=== PATIENT | male | born 1950 | race Caucasian/White ===

== ENCOUNTER 2020-04-18 18:28 | Emergency (ER) | payer MEDICARE, SELFPAY ==
--- NOTE | 2020-04-18 18:54 | PC.NURSE ---
1830 following registration, prior to triage pt informed staff he decided to go to er for finger and nail repair. appears in no distress.
== END 2020-04-18 18:30 | disposition left against medical advice (07) ==
PROVIDERS: Emergency Provider Internal Medicine Hematology & Oncology; PCP Internal Medicine
DX: Z53.21 Procedure and treatment not carried out due to patient leaving prior to being seen by health care provider (principal)
CPT/HCPCS: 99199

== ENCOUNTER 2024-09-07 07:40 | Outpatient (CLI) | payer MEDICARE, SELFPAY ==
--- NOTE | ~2024-09-07 | CT_ITS ---
EXAMINATION: CT abdomen pelvis wo/w con DATE: 09/07/2024 08:37 INDICATION: Gross hematuria. TECHNIQUE: Computed tomography (CT) of the abdomen and pelvis was performed without and with intraven ous contrast using a total of 130 mL Omnipaque-350 intravenous contrast with a double-bolus technique for simultaneous opacification of the renal parenchyma and renal collecting system. Automated exposu re control and iterative reconstruction technique were employed. The dose-length product was 2951.31 mGy-cm. COMPARISON: None FINDINGS: The visualized portions of the lung bases demonstrate mild atelectasis and mild chronic lung disease. No pleural effusion. The heart size is normal. No pericardial effusion. There is a small sliding hia darlyn hernia. Left hepatic lobe is small. There is a 5 mm cyst in the liver. 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 The spleen, pancreas, adrenal glands, and kidneys are normal. There are 1.0 cm and 2.9 cm stones in the bladder. The ureters are well opacified and are normal. The bladder is not well disten ded. There is diffuse bladder wall thickening. The prostate is severely enlarged. There are bilateral inguinal hernias containing fat. There are no dilated loops of bowel. The appendix is normal. There are no pathologically enlarged lymph nodes. There is no free intraperitoneal fluid. There are scatter ed benign bone islands. There is mild thoracic spondylosis and severe lower lumbar spondylosis. IMPRESSION: 1. Bladder stones. 2. Diffuse bladder wall thickening, likely secondary to chronic outlet obstruction from the severely enlarged prostate. Reviewed, dictated and finalized at location B. IMPRESSION: 1. Bladder stones. 2. Diffuse bladder wall thickening, likely secondary to chronic outlet obstruct ion from the severely enlarged prostate.
[2024-09-07 08:18] LABS: Estimated Glomerular Filt Rate > 60
== END 2024-09-07 07:41 | disposition home or self-care (01) ==
PROVIDERS: PCP Internal Medicine; Visit Provider Nurse Practitioner Family
DX: R31.0 Gross hematuria (principal); N21.0 Calculus in bladder
CPT/HCPCS: 74178; Q9967

== ENCOUNTER 2024-11-24 01:22 | Day surgery (SDC) | payer MEDICARE, SELFPAY ==
[2024-11-15 15:41] VITALS: BMI 31.8
--- NOTE | 2024-11-15 15:58 | PC.NURSE ---
Report to the Outpatient Waiting Room, entrance under the green pavilion located off [facility], at time __6:30AM on date ___11/24/24____. Planned Procedure Time: ___8:30AM .? Time changes happen often and if your time is changed the preop area will call you the afternoon before. - You and your visitor will be asked to self-screen and do not enter if you have any COVID symptoms. Please call surgeon if you need to reschedule. - A mask is optional within the hospital at this time. Patients may have clear liquids (water, carbonated beverages, clear teas, apple juice) until 3 hours prior to surgery (5:30AM) with a maximum of 20 ounces. - No food from midnight until time of surgery and no smoking. This includes no chewing gum, candy or mints. - Infants may have breast milk until 4 hours before surgery, formula 6 hours prior to surgery. - Children will be allowed to drink immediately following surgery.? If applicable, please bring a bottle or sippy cup to assist with drinking. Juice, water, soda, and popsicles are readily available.? For infants on formula, please bring formula the day of surgery.? Pacifiers are allowed. Take only the following medications with a SIP of water on the morning of surgery: NONE (PT WILL BE FINISHED TAKING LEVOFLOXACIN) DO NOT STOP ANY OF YOUR OTHER PRESCRIPTION MEDICATIONS PRIOR TO SURGERY EXCEPT THE FOLLOWING Medications to discontinue per physician HOLD ALL VITAMINS/SUPPLEMENTS 7 DAYS PRE-OP PER DR COBIAN Date to take last dose 11/16/24 Please no make-up, nail hungarian, hairspray, perfume, deodorant, or body powder the day of surgery.? No jewelry (including any body piercings) or valuables the day of surgery, leave them at home.? Please take a shower or bath the night before, or the morning of, surgery with an antibacterial soap.? Wear comfortable, loose fitting clothing.? Children are encouraged to wear pajamas. - Jewelry must be removed prior to entering the operating room.? Rings and piercings that are not removed may be cut off. - The hospital will not accept responsibility for valuables.? - Please leave all valuables, including medications, at home the day of surgery. If you are going home after surgery, a licensed delivery motorcycle driver must drive you home.? - NO public transportation without another adult if you receive anesthesia. - We recommend that an adult stay with you for 24 hours following discharge. - We also recommend that you do not drive, make important decision, drink alcoholic beverages, or take any drugs that were not prescribed by your health care provider for at least 24 hours after your discharge time. For Pediatric surgeries, we recommend two adults accompany the child home. Follow any additional instructions given to you from your surgeon. Telephone instructions given to ____PATIENT and asked if any additional questions and then verbalized understanding. Patient advised to call surgeon office or pre surgery nurse liaison [phone] if any additional questions.
--- NOTE | 2024-11-18 16:56 | PM.HPGS ---
History of Present Illness History of Present Illness Consent: Risks, benefits, and alternatives have been discussed and questions answered. Patient agrees to proceed with procedure. Chief complaint: bladder stones Narrative: Brant Guallpa is a 74 year old male who was recently seen by our nurse practitioner for recurrent urinary tract infection and micro hematuria. Upper tract imaging was quite notable for a massively enlarged prostate ( measured at 535 g) and a very large bladder stone. He has been started on combination therapy for marked BPH and we have had discussion about prostate artery embolization. 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 Spiritual care concerns: No Meds Home Medications and Allergies Home Medications ?Medication ?Instructions ?Recorded ?Confirmed ?Type finasteride 5 mg tablet 5 mg PO DAILY 11/15/24 11/15/24 History ibuprofen 200 mg capsule 400 mg PO TID PRN pain 11/15/24 11/15/24 History levofloxacin 500 mg tablet 500 mg PO Q24H 11/15/24 11/15/24 History multivitamin (Daily Multi-Vitamin 1 tablet PO DAILY 11/15/24 11/15/24 History tablet) omeprazole 20 mg capsule,delayed 20 mg PO DAILY 11/15/24 11/15/24 History release tamsulosin 0.4 mg capsule 0.4 mg PO Q24H 11/15/24 11/15/24 History Allergies Allergy/AdvReac Type Severity Reaction Status Date / Time Sulfa (Sulfonamide Allergy Unknown UNKNOWN Verified 11/15/24 15:32 Antibiotics) Exam Const: General: no acute distress Resp: Effort & Inspection: normal respiratory effort GI: Inspection: non-distended GI Palp: No abdominal tenderness and No Guarding due to palpation present (GI) Auscultation: normal bowel sounds Assessment and Plan Assessment and plan (1) BPH loc w urin obs/LUTS: Code(s): N40.1 - Benign prostatic hyperplasia with lower urinary tract symptoms Status: Acute (2) Bladder stone: Code(s): N21.0 - Calculus in bladder Status: Acute Assessment and Plan: Cystoscopy, laser lithotripsy bladder calculus
[2024-11-24] VITALS (22 sets, daily range): BP systolic 99–160; BP diastolic 64–98; PULSE 73–113; RESP 12–20; TEMP 36.2–38.2; O2SAT 94–100
--- NOTE | 2024-11-24 06:24 | WPDHPUPDATE1 ---
History and Physical Update Update Date/Time: 11/24/24 06:24 History and Physical has been reviewed, including an updated exam of the patient. There are NO changes in the patient's condition. Risks, benefits, and alternatives have been discussed and questions answered. Patient agrees to proceed with procedure.
[2024-11-24] MEDS: LACTATED RINGERS 1,000 ML 30 ML IV CONT ×2 (07:00→10:10)
--- NOTE | 2024-11-24 08:00 | P.PNAN_ITS ---
Anes - Initial Pre Proc Eval Procedure: Operation Date: 11/24/24 08:30 Proposed Procedures p Cystoscopy, Laser Lithotripsy, Bladder Stones - Mandeep Jacob MD Date/Time: 11/24/24 08:00 Surgeon: Mandeep Jacob MD Pre Op Diagnosis: bladder stones Patient Data Age: 74 Gender: M Height: 1.82 m Weight: 104.7 kg Last Vital Signs Temp 97.1 F L 11/24/24 07:00 Pulse 91 11/24/24 07:00 Resp 14 11/24/24 07:00 BP 117/81 11/24/24 07:00 Pulse Ox 97 11/24/24 07:00 O2 Del Method Room Air 11/24/24 07:00 Allergies Allergy/AdvReac Type Severity Reaction Status Date / Time Sulfa (Sulfonamide Allergy Unknown UNKNOWN Verified 11/24/24 07:25 Antibiotics) Home Medications ?Medication ?Instructions ?Recorded ?Confirmed ?Type finasteride 5 mg tablet 5 mg PO DAILY 11/15/24 11/15/24 History ibuprofen 200 mg capsule 400 mg PO TID PRN pain 11/15/24 11/15/24 History levofloxacin 500 mg tablet 500 mg PO Q24H 11/15/24 11/15/24 History multivitamin (Daily Multi-Vitamin 1 tablet PO DAILY 11/15/24 11/15/24 History tablet) omeprazole 20 mg capsule,delayed 20 mg PO DAILY 11/15/24 11/15/24 History release tamsulosin 0.4 mg capsule 0.4 mg PO Q24H 11/15/24 11/15/24 History Patient hx anesthesia problems: none Family hx anesthesia problems: none Results Review: All pre-operative results and documents have been reviewed as part of the pre- operative evaluation. 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 Obesity BMI 31. Informed Consent: The patient's anesthetic plan and its attendant risks and benefits were discussed with the patient/family/POA. Questions were solicited and answers provided to the satisfaction of the patient/family/POA.
[2024-11-24] MEDS: ceFAZolin 2 GM/D5W 50 ML 2 GM/50 ML BAG IVPB (08:03)
[2024-11-24] MEDS: LIDOCAINE 2% GEL UROJET 10 ML PKG MUCOUS MEM (08:08)
--- NOTE | 2024-11-24 10:06 | W.PM.PROC2 ---
Procedure Note - Detailed Date of Procedure 11/24/24 Pre-op Diagnosis Bladder stone, BPH Post-op Diagnosis Same Procedure Performed Cystoscopy, laser lithotripsy of a very large bladder stone, cautery prostate Surgeon Mandeep Jacob MD Anesthesia General Description of Procedure patient brought the operative suite was prepped draped in routine sterile fashion while in dorsal lithotomy position after the uneventful induction of a general LMA anesthetic. This is a challenging case because he has massive prostatic enlargement ( 535 g) and a very large 6-7 cm bladder stone. Persistent, however, I was able to fracture the stone pieces small enough to either irrigated or removed manually with a 24 F resectoscope sheath and loop. This was done using a 1000 micron Matias laser fiber. At the termination the bladder mucosa is was irritated and hyperemic. There was some oozing at the bladder neck which I cauterized with a rollerball. All fragments had been removed either by irrigation or with the resectoscope loop. A 22 F hematuria catheter was placed to continuous irrigation at the termination. Urine was minimally blood-tinged. Drains Yes Packing No Pathology Yes Complications No immediate complications Condition Stable
[2024-11-24] MEDS: fentaNYL CITRATE INJ (*CRX) 100 MCG/2 ML VIAL 25 MCG IV PUSH ×2 (12:11→12:14)
--- NOTE | 2024-11-24 12:27 | SUR.PHASEI ---
Dr. Jacob at bedside irrigating velazquez.
--- NOTE | 2024-11-24 13:45 | ADMGEN ---
This patient, Brant Guallpa, was admitted to 3 [facility] Room 313-01. Patient/family oriented to hospital policies and general routines including ID bracelet, bed and alarms, visiting hours, pain management, procedures, bathroom and other care routines, personal items, smoking policy, room service/diet, and visiting hours. Information on how to activate the Rapid Response Team has been discussed. Patient/Family are encouraged to report perceived risks to care and to ask questions if they do not understand what they are told or what they should do.
[2024-11-24] MEDS: DOCUSATE SODIUM 100 MG CAPSULE PO (16:22)
[2024-11-24] MEDS: ceFAZolin 1 GM/NS 50 ML 1 GM/50 ML BAG IVPB ×2 (16:23→23:05)
[2024-11-24] MEDS: DEXTROSE 5%/LACTATED RINGERS 1,000 ML 125 ML IV CONT (16:24)
[2024-11-24] MEDS: HYDROcodone/acetaminophen (*CRX) 5-325 MG TABLET 1 TAB PO ×2 (18:28→22:49)
[2024-11-24] MEDS: HYOSCYAMINE SULFATE 0.125 MG TABLET SUBLINGUAL (20:52)
[2024-11-25] MEDS: DEXTROSE 5%/LACTATED RINGERS 1,000 ML 125 ML IV CONT ×2 (00:39→10:04)
[2024-11-25] MEDS: MORPHINE SULFATE (*CRX) 2 MG/ML INJ IV PUSH (02:30)
[2024-11-25 03:28] VITALS: BP 139/80; PULSE 100; RESP 20; TEMP 37.4; O2SAT 96
--- NOTE | 2024-11-25 06:35 | P.PNUR_ITS ---
Progress Note: A&P Assessment and Plan (1) Bladder stone: Code(s): N21.0 - Calculus in bladder Status: Acute (2) BPH loc w urin obs/LUTS: Code(s): N40.1 - Benign prostatic hyperplasia with lower urinary tract symptoms Status: Acute Assessment and Plan: * Challenging problem in this patient with a 500 g prostate and 4 cm bladder stone. POD #1 s/p laser extraction bladder stone * Was doing well postoperatively until the hematuria recurred following a bowel movement yesterday. * Urine is now clearing his bladder irrigates freely. * I will remove the catheter for a voiding trial today Subjective Subjective Date/Time Seen: 11/25/24 06:35 Interval history: Hematuria with clots after BM last night. Urine now clear on CBI Review of Systems Review of Systems: All systems reviewed & are unremarkable except as noted in HPI and below Exam Const: General: no acute distress Resp: Effort & Inspection: normal respiratory effort GI: Inspection: non-distended GI Palp: No abdominal tenderness and No Guarding due to palpation present (GI) Auscultation: normal bowel sounds Urinary Catheter: Urinary Catheter: patent and draining and urine clear Objective Data Vital Signs Vital Signs: Vital Signs - 24 hr 11/24/24 07:00 11/24/24 10:10 11/24/24 10:25 Temperature 97.1 F L 98.1 F Pulse Rate 91 73 83 Respiratory Rate 14 14 15 Blood Pressure 117/81 122/80 150/97 H Pulse Oximetry 97 95 97 Oxygen Delivery Room Air Simple Face Mask Simple Face Mask Oxygen Flow Rate 8 8 11/24/24 10:40 11/24/24 10:55 11/24/24 11:10 Temperature Pulse Rate 80 78 77 Respiratory Rate 12 15 16 Blood Pressure 149/98 H 149/96 H 145/95 H Pulse Oximetry 94 96 94 Oxygen Delivery Room Air Room Air Room Air Oxygen Flow Rate 11/24/24 11:25 11/24/24 11:40 11/24/24 11:55 Temperature Pulse Rate 78 76 76 Respiratory Rate 16 16 14 Blood Pressure 145/86 H 135/95 H 159/96 H Pulse Oximetry 94 96 97 Oxygen Delivery Room Air Room Air Room Air Oxygen Flow Rate 11/24/24 12:10 11/24/24 12:25 11/24/24 12:40 Temperature Pulse Rate 76 79 83 Respiratory Rate 14 16 15 Blood Pressure 153/86 H 139/88 149/82 H Pulse Oximetry 97 95 96 Oxygen Delivery Room Air Room Air Room Air Oxygen Flow Rate 11/24/24 12:55 11/24/24 13:10 11/24/24 13:25 Temperature Pulse Rate 85 77 84 Respiratory Rate 20 14 18 Blood Pressure 139/90 147/88 H 142/90 H Pulse Oximetry 96 95 99 Oxygen Delivery Room Air Room Air Room Air Oxygen Flow Rate 11/24/24 13:40 11/24/24 13:43 11/24/24 13:58 Temperature 97.6 F 98.2 F Pulse Rate 82 87 97 Respiratory Rate 16 16 16 Blood Pressure 152/80 H 146/79 H 160/98 H Pulse Oximetry 98 98 98 Oxygen Delivery Room Air Oxygen Flow Rate 11/24/24 14:28 11/24/24 15:28 11/24/24 19:28 Temperature 98.0 F 97.9 F 99.3 F Pulse Rate 103 H 112 H 106 H Respiratory Rate 18 18 20 Blood Pressure 152/91 H 99/89 L 119/64 Pulse Oximetry 100 97 94 Oxygen Delivery Oxygen Flow Rate 11/24/24 20:34 11/24/24 23:28 11/25/24 03:28 Temperature 100.8 F H 99.4 F Pulse Rate 113 H 100 Respiratory Rate 20 20 Blood Pressure 136/78 139/80 Pulse Oximetry 94 96 Oxygen Delivery Room Air Oxygen Flow Rate Intake/Output Intake/Output: Intake & Output 11/22/24 11/23/24 11/24/24 11/25/24 23:59 23:59 23:59 23:59 Intake Total 6350 1550 Output Total 5475 Balance 875 1550 Meds/Results Medications: Active Medications Generic Name Dose Route Start Last Admin Trade Name Freq PRN Reason Stop Dose Admin Hydrocodone Bitart/Acetaminophen 1 tab 11/24/24 13:43 11/24/24 22:49 Hydrocodone/Acetaminophen (*Crx) 5-325 Mg Tablet PO 1 tab Q4H PRN Administration Pain Rated 1-6 Cephalexin HCl 500 mg 11/25/24 09:00 Cephalexin 500 Mg Capsule PO QID CHUCK Docusate Sodium 100 mg 11/24/24 17:00 11/24/24 16:22 Docusate Sodium 100 Mg Capsule PO 100 mg BID CHUCK Administration Hyoscyamine 0.125 mg 01/16/25 13:43 11/24/24 20:52 Hyoscyamine Sulfate 0.125 Mg Tablet SUBLINGUAL 0.125 mg Q6H PRN Administration Bladder Spasm Dextrose/Lactated Ringer's 1,000 mls @ 125 mls/hr 11/24/24 13:43 11/25/24 00: 39 Dextrose 5%/Lactated Ringers IV CONT 125 mls/hr .Q8H CHUCK Administration Morphine Sulfate 2 mg 11/24/24 13:43 11/25/24 02:30 Morphine Sulfate (*Crx) 2 Mg/Ml Inj IV PUSH 2 mg Q2H PRN Administration Pain Rated 7-10 Naloxone HCl 0.1 mg 11/24/24 13:43 Naloxone Hcl 0.4 Mg/Ml Vial IV PUSH Q2M PRN Opiate Reversal Ondansetron HCl 4 mg 11/23/24 15:54 Ondansetron Inj 4 Mg/2 Ml Vial IV PUSH ONCE PRN Nausea Ondansetron HCl 4 mg 11/24/24 13:43 Ondansetron Inj 4 Mg/2 Ml Vial IV PUSH Q12H PRN Nausea And Vomiting
[2024-11-25 06:47] LABS: Hematocrit 46.1 % (42.0-52.0); Hemoglobin 15.7 g/dL (14.0-18.0)
[2024-11-25 07:02] LABS: Anion Gap 8 mmol/L (4-12); Blood Urea Nitrogen 11 mg/dL (9-20); Calcium 8.6 mg/dL (8.4-10.2); Carbon Dioxide 28 mmol/L (22-30); Chloride 102 mmol/L (98-107); Estimated CRCL calculation 82 ml/min; Estimated Glomerular Filt Rate > 60; Glucose 134 mg/dL (65-110); Potassium 4.1 mmol/L (3.4-5.0); Sodium 138 mmol/L (137-145)
[2024-11-25 07:28] VITALS: BP 137/83; PULSE 105; RESP 18; TEMP 37; O2SAT 96
--- NOTE | 2024-11-25 08:00 | PC.NURSE ---
Bladder scanner reported 226cc of urine. Dr. Jacob at bedside.
[2024-11-25] MEDS: HYDROcodone/acetaminophen (*CRX) 5-325 MG TABLET 1 TAB PO (08:36)
[2024-11-25] MEDS: HYOSCYAMINE SULFATE 0.125 MG TABLET SUBLINGUAL (08:37)
[2024-11-25] MEDS: CEPHALEXIN 500 MG CAPSULE PO ×2 (08:37→12:35)
[2024-11-25] MEDS: DOCUSATE SODIUM 100 MG CAPSULE PO (08:37)
--- NOTE | 2024-11-25 10:12 | PC.NURSE ---
Urology at bedside. Bladder scanned and reported 449cc of urine.
[2024-11-25 11:28] VITALS: BP 112/82; PULSE 95; RESP 16; TEMP 36.9; O2SAT 99
--- NOTE | 2024-11-25 12:10 | PC.NURSE ---
Urinary catheter reinserted at bedside per Dr. Jacob.
[2024-11-25] MEDS: MAGNESIUM CITRATE 300 ML BTL 150 ML PO (12:35)
--- NOTE | 2024-11-25 15:43 | PM.DS ---
DS: Admitting Diagnosis Discharge Date 11/25/2024 Admitting Diagnosis 1. BPH 2. Bladder stone DS: Summary Hospital Course Hospital Course: Patient with massive BPH (500 g prostate) in a stone. He was admitted for laser lithotripsy with bladder stone extraction. We were able to complete the procedure but he had some moderate hematuria postoperatively. All 3 way catheter was left in place overnight PICC clear urine. Decision was made discharge him with an indwelling catheter and follow-up next week for another voiding. Time Spent with Patient Time attestation: Total time spent providing and/or coordinating discharge services: Exam Const: General: no acute distress Resp: Effort & Inspection: normal respiratory effort GI: Inspection: non-distended GI Palp: No abdominal tenderness and No Guarding due to palpation present (GI) Auscultation: normal bowel sounds DS: Data Data Completed and Pending Completed studies during hospitalization: Pending at discharge 11/24/24 09:29 Surgical [PTH] Routine Labs on day of discharge: Labs from last 24 hours 11/25/24 06:04 Hgb 15.7 Hct 46.1 Sodium 138 Potassium 4.1 Chloride 102 Carbon Dioxide 28 Anion Gap 8 BUN 11 Creatinine 0.84 Estim Creat Clear Calc 82 Estimated GFR > 60 Glucose 134 H Calcium 8.6 Discharge Plan Discharge Patient Disposition: Home, Self-Care Discharge Instructions: 1) Activity: no driving or important decisions x24 hours. 2) Diet: resume your normal, pre-admission diet. 3. [place] catheter -> leg bag / large bag at night. 3) Follow-up: Thursday11/28/24 @[phone] for catheter removal ([phone]). Patient Language: Greenlandic Stand Alone Forms: General Discharge Instructions Discharge Orders: Discharge Order (Routine); Ordered 11/25/24 Ordered By: Mandeep Jacob Discharge Medications: New hydrocodone-acetaminophen 5-325 mg tablet 1 - 2 tablet PO Q6H PRN (Reason: pain) Qty: 20 0RF cephalexin 500 mg capsule 500 mg PO Q8H Qty: 9 0RF Continued finasteride 5 mg tablet 5 mg PO DAILY tamsulosin 0.4 mg capsule 0.4 mg PO Q24H levofloxacin 500 mg tablet 500 mg PO Q24H omeprazole 20 mg capsule,delayed release(DR/EC) 20 mg PO DAILY multivitamin [Daily Multi-Vitamin] Tablet 1 tablet PO DAILY ibuprofen 200 mg capsule 400 mg PO TID PRN (Reason: pain)
--- OUTSIDE RECORDS SUMMARY | 2024-12-01 00:38 | XMS_ITS | Encounter Summary ---
Author Organization [facility] Address [address] [place] [address] Phone Care Team Providers Care Air Brake Man Name Role Phone Dimitrios Stewart MD Primary Care Provider [phone] Kailash Payan MD Unavailable Reason for Visit * Reason Comments Medication Refill Encounter Details Date Type Department Care Team (Late st Contact Info) Description 04/05/2024 Refill [facility] - Primary Care - [place] [address] [place] [address] Dimitrios Stewart MD [address] [place] [address] Medication Refill Social History Tobacco Use Types Packs/Day Years Used Date Smoking Tobacco: Former Cigarettes 0.3 5 Smokeless Tobacco: Never Comments:Quit 60 yrs ago Alcohol Use Standard Drinks/Week Comments Yes 2 (1 standard drink = 0.6 oz pur e alcohol) [facility] Utilities Answer Date Recorded In the past 12 months has e electric, gas, oil, or water company threatened to shut off services in your home? No 12/28/2023 Social Connection and Isolat ion Panel [NHANES] Answer Date Recorded In a typical week, how many times do you talk on the phone with family, friends, or neighbors? More than three times a week 12/28/2023 How often do you get togethe r with friends or relatives? Twice a week 12/28/2023 How often do you attend chur ch or confucianism services? Never 12/28/2023 Do you belong to any clubs o r organizations such as shinto groups, unions, fraternal or athletic groups, or school groups? No 12/28/2023 How often do you attend meet ings of the clubs or organizations you belong to? Never 12/28/2023 Are you , , di vorced, , never , or living with a partner? 12/28/2023 AUDIT-C Answer Date Recorded Q1: How often do you have a drink containing alc ohol? 2-3 times a week 12/28/2023 Q2: How many drinks containi ng alcohol do you have on a typical day when you are drinking? 1 or 2 12/28/2023 Q3: How often do you have si x or more drinks on one occasion? Never 12/28/2023 Overall Financial Resource Strain (CARDIA) Answe r Date Recorded How hard is it for you to pa y for the very basics like food, housing, medical care, and heating? Not hard at all 12/28/2023 PHQ-2 Answer Date Recorded Total Score - Questions 1-9 0 12/11 [facility] Occupat ional Health - Occupational Stress Questionnaire Answer Date Recorded Do you feel stress - tense, restless, nervous, or anxious, or unable to sleep at night because your mind is troubled all the time - these days? Only a little 12/28/2023 Exercise Vital Sign Answer Date Recorde d On average, how many days pe r week do you engage in moderate to strenuous exercise (like a brisk walk)? 2 days On average, how many minutes do you engage in exercise at this level? Patient declined 12/28/2023 Hunger Vital Sign Answer Date Recorded Within the past 12 months, y ou worried that your food would run out before you got the money to buy more. Never true 12/28/19 24 Within the past 12 months, t he food you bought just didn't last and you didn't have money to get more. Never true 12/28/2023 PRAPARE - Transportation Answer Date Re corded In the past 12 months, has l ack of transportation kept you from medical appointments or from getting medications? No 12/10 In the past 12 months, has l ack of transportation kept you from meetings, work, or from getting things needed for daily living? No 12/28/2023 Housing Stability Vital Sign Answer Jonathan e Recorded In the last 12 months, was t here a time when you were not able to pay the mortgage or rent on time? No 12/28/2023 In the last 12 months, how many places have you lived? 1 12/28/2023 In the last 12 months, was t here a time when you did not have a steady place to sleep or slept in a penitentiary (including now)? No 12/28/2023 Education Answer Date Recorded What is the highest level of school you have completed or the highest degree you have received? Associate degree: academic program 12/17/2022 Sexually Active Control Partners Comments Yes Female Sex and Gender Information Value Date Recorded Sex Assigned at Not on file Legal Sex Male 11:54 PM CDT Gender Identity Not on file Sexual Orientation Not on file documented as of this encounter Plan of Treatment Upcoming Encounters Date Type Department Care Team (Late st Contact Info) Description 12/29/2024 9:00 AM SEM MANAGER Office Visit [facility] - Primary Care - [place] [address] [place] [id number] Dimitrios Stewart MD [address] [place] [address] documented as of this encounter Visit Diagnoses Not on filedocumented in this encounter Additional Health Concerns Infection Onset Date Last Indicated Resolved Time COVID - 19 05/23/2024 05/23/2024 05/23/2024 4:10 PM CDT Assessment Noted Time PHQ-9 Depression Total Score: 0 12/29/19 24 7:58 AM SEM MANAGER documented as of this encounter Care Teams Air Brake Man Relationship Specialty Start Date End Date Dimitrios Stewart MD [address] [place] [address] PCP - General Internal Medicine 10/21/16 Kailash Payan MD [id number] [phone] Consulting Physician Urological Surgery 12/19/22 documented as of this encounter
--- OUTSIDE RECORDS SUMMARY | 2024-12-01 00:38 | XMS_ITS | Clinical Summary ---
Author Organization [facility] Address [address] [place] [address] Phone Care Team Providers Care Fence Builder Name Role Phone Dimitrios Stewart MD Primary Care Provider [phone] Kailash Payan MD Unavailable Allergies Active Allergy Reactions Criticality Noted Date Comments Sulfa Antibiotics Unknown 10/19/2015 Patient states he has never had this medication, was told by mother he was probably allergic since she had a reaction when she was with him Medications glucosamine-cho ndroitin 500-400 MG Capsule Take 1 Capsule by mouth 3 times daily. Active Multiple Vitamins-Minera ls (MULTIVITAMIN MEN 50+) Tablet Take 1 Tab by mouth daily. Active CRANBERRY PO Take by mouth daily. Active ELDERBERRY PO Take by mouth daily. Active triamcinolone (KENALOG) 0.1 % Cream Apply sparingly twice a day to the affected area. Rub cream in until invisible. 45 g 1 3 Active omeprazole (PriLOSEC) 20 MG CAPSULE DELAYED RELEASE TAKE 1 CAPSULE BY MOUTH DAILY 90 Capsule 2 4 Active Active Problems Problem Noted Date Diagnosed Date Seborrheic keratoses 12/16/2019 Benign prostatic hyperplasia with nocturia 03/19 Arthritis 10/21/2016 Irritable bowel syndrome wit h both constipation and diarrhea 10/21/2016 Conductive hearing loss, external ear Overview (11/07/2015): Improve with cleaning Vertigo Gastroesophageal reflux disease without esophagi tis Resolved Problems Problem Noted Date Diagnosed Date Resolved Date Impacted cerumen of both ears 10/21/2016 Encounters Date Type Department Care Team Description 11/11/2024 Telephone [facility] - Primary [facility] - [place] [address] [place] [address] Dimitrios Stewart MD Referral (UROLOGY) from Last 3 Months Immunizations Immunization Administration Dates Next Due Covid-19 Vaccine, Vector-nr, [id number], Pf, 0.5 Ml (g-[employer]/J&J) 04/17/2021 PNEUMONIA ADULT IM [id number] 10/21/2016 Pneumococcal Vaccine - 13 Valent 08/13/2015 TD VACCINE 11/09/2007 TDAP Vaccine 04/18/2020,12/14/2017 Family History Medical History Relation Name Comments Stroke Father Relation Name Status Comments Father Social History Tobacco Use Types Packs/Day Years Used Date Smoking Tobacco: Former Cigarettes 0.3 5 Smokeless Tobacco: Never Tobacco Cessation:Counseling Given: Not Answered Comments:Quit 60 yrs ago Alcohol Use Standard Drinks/Week Comments Yes 2 (1 standard drink = 0.6 oz pur e alcohol) Occasionally [employer] Utilities Answer Date Recorded In the past 12 months has [employer] electric, gas, oil, or water [employer] threatened to shut off services in your home? No 05/23/2024 Social Connection and Isolat ion Panel [NHANES] Answer Date Recorded In a typical week, how many times do you talk on the phone with family, friends, or neighbors? More than three times a week 05/23/2024 How often do you get togethe r with friends or relatives? Once a week 05/23/2024 How often do you attend chur or denominational services? Patient declined 05/23/2024 Do you belong to any clubs o r organizations such as scientology groups, unions, fraternal or athletic groups, or school groups? Yes 05/23/2024 How often do you attend meet ings of the clubs or organizations you belong to? More than 4 times per year 05/23/2024 Are you , , di vorced, , never , or living with a partner? 05/23/2024 AUDIT-C Answer Date Recorded Q1: How often do you have a drink containing alcohol? 2-4 times a month 05/23/2024 Q2: How many drinks containi ng alcohol do you have on a typical day when you are drinking? Patient does not drink Q3: How often do you have si x or more drinks on one occasion? Never 05/23/2024 Overall Financial Resource Strain (CARDIA) Answe r Date Recorded How hard is it for you to pa y for the very basics like food, housing, medical care, and heating? Not hard at all 12/28/2023 PHQ-2 Answer Date Recorded Total Score - Questions 1-9 0 12/11 [facility] of Occupat ional Health - Occupational Stress Questionnaire Answer Date Recorded Do you feel stress - tense, restless, nervous, or anxious, or unable to sleep at night because your mind is troubled all the time - these days? To some extent 05/23/2024 Exercise Vital Sign Answer Date Recorde d On average, how many days pe r week do you engage in moderate to strenuous exercise (like a brisk walk)? 2 days 05/23/2024 On average, how many minutes do you engage in exercise at this level? 10 min 05/23/2024 Hunger Vital Sign Answer Date Recorded Within the past 12 months, y ou worried that your food would run out before you got the money to buy more. Never true 05/23/20 24 Within the past 12 months, t he food you bought just didn't last and you didn't have money to get more. Never true 05/23/2024 PRAPARE - Transportation Answer Date Re corded In the past 12 months, has l ack of transportation kept you from medical appointments or from getting medications? No 05/09 In the past 12 months, has l ack of transportation kept you from meetings, work, or from getting things needed for daily living? No 05/23/2024 Housing Stability Vital Sign Answer Jonathan e [...] place to sleep or slept in a assisted (including now)? No 12/28/2023 Housing Stability Vital Sign Answer Jonathan e Recorded In the last 12 months, was t here a time when you were not able to pay the mortgage or rent on time? No 05/23/2024 In the past 12 months, how m any times have you moved where you were living? 0 05/23/2024 At any time in the past 12 m [facility], were you homeless or living in a assisted (including now)? No 05/23/2024 Education Answer Date Recorded What is the highest level of school you have completed or the highest degree you have received? Associate degree: academic program 12/17/2022 Sexually Active Control Partners Comments Yes Female Sex and Gender Information Value Date Recorded Sex Assigned at Not on file Legal Sex Male 11:54 PM CDT Gender Identity Not on file Sexual Orientation Not on file Last Filed Vital Signs Vital Sign Reading Time Taken Comments Blood Pressure 98/66 05/23/2024 3:53 PM CDT Pulse 80 05/23/2024 3:53 PM CDT Temperature 37.1 ??C (98.8 ??F) 05/23/2024 3:53 PM CD T Respiratory Rate 18 05/23/2024 3:53 PM CDT Oxygen Saturation 94% 05/23/2024 3:53 PM CDT Inhaled Oxygen Concentration - - Weight 101.8 kg (224 lb 6 oz) 05/23/2024 3:53 PM CDT Height 181.6 cm (5' 11.5 ) 05/23/2024 3:53 PM CD T Body Mass Index 30.86 05/23/2024 3:53 PM CDT Plan of Treatment Upcoming Encounters Date Type Department Care Team (Late st Contact Info) Description 12/29/2024 9:00 AM LOG CHECK SCALER Office Visit [facility] - Primary Care - [place] [address] [place] [address] Dimitrios Stewart MD [address] [place] [address] Health Maintenance Due Date Last Done Comments Cologuard 1999 Immunochemical Fecal Occult Blood 1999 Zoster Immunization (1 of 2) 1999 Influenza Immunization (#1) 2024 SARS-COV-2 Immunization ( season) 2024 01/07/2022, 04/17/2021 Respiratory Syncytial Virus (RSV) Immunization (Adult) (1 - 1-dose 75+ series) 2024 Colonoscopy 03/12/2025 03/12/2022, 08/01/2014 Colorectal Cancer Screening 03/12/2025 Td Immunization Every 10 Yea rs (Adults With 1 Tdap) 04/18/2030 04/18/2020, 12/14/2017, 11/09/2007 03/12/2022, 08/01/2014 Pneumococcal Immunization (5 0+ years) Completed 10/21/2016, 08/13/2015 Pneumococcal Immunization Combined Discontinued 10/21/2016, 08/13/2015 AAA Screening Ultrasound Discontinued 06/05/2022 Hepatitis C Virus (HCV) Screening Completed 12/29/2023 Hepatitis B Immunization Aged Out No longer eligible based on patient's age to complete this topic Meningococcal Immunization (ACWY) Aged Out No longer eligible based on patient's age to complete this topic Rotavirus Immunization Aged Out No lo nger eligible based on patient's age to complete this topic Procedures Procedure Name Priority Date/Time Associated Diagnosis Comments HEMOGLOBIN & HEMATOCRIT (H&H) 11/25/2024 12:00 AM LOG CHECK SCALER BASIC METABOLIC PANEL W/ CALCIUM TOTAL 11/25/2024 12:00 AM LOG CHECK SCALER PATHOLOGY SURGICAL 11/24/2024 12 :00 AM LOG CHECK SCALER UROLOGY PROCEDURE 11/24/2024 12: 00 AM LOG CHECK SCALER HEPATITIS C ANTIBODY Routine 12/29/2023 8:16 AM LOG CHECK SCALER Encounter for hepatitis C screening test for low risk patient HM COLONOSCOPY Routine 08/01/2014 from Last 3 Months or Most Recently Relevant to Health Maintenance Results * HEMOGLOBIN & HEMATOCRIT (H&H) (11/25/2024 12:00 AM LOG CHECK SCALER) 11/25/2024 us Provider Scan HEMATOLOGY ORDERABLES Final Resu lt Performing Organization Address City/[facility] de Phone Number SCAN * BASIC METABOLIC PANEL W/ CALCIUM TOTAL (11/25/2024 12:00 AM LOG CHECK SCALER) 11/25/2024 us Provider Scan CHEMISTRY ORDERABLES Final Resul t Performing Organization Address City/[facility] Co de Phone Number SCAN * UROLOGY PROCEDURE (11/24/2024 12:00 AM LOG CHECK SCALER) 11/24/2024 us Provider Scan GEN ORDERS Final Result Performing Organization Address [facility] de Phone Number SCAN * PATHOLOGY SURGICAL (11/24/2024 12:00 AM LOG CHECK SCALER) 11/24/2024 us Provider Scan PATHOLOGY/CYTOLOGY ORDERABLES Fi nal Result Performing Organization Address [facility] de Phone Number SCAN * HEPATITIS C ANTIBODY (12/29/2023 8:16 AM LOG CHECK SCALER) hepatitis C antibody 0.22 <1 S/CO [facility] ARCH [id number] 12/31/2023 4:06 AM LOG CHECK SCALER [facility] Comment: Signal/Cutoff ratio ??< 0.79 is Nondetected Signal/Cutoff ratio 0.80-0.99 is Grayzone Signal/Cutoff ratio > 0.99 is Detected Supplemental assays are recommended if signal/cutoff ratio is >/=1.00. ??Signal/cutoff ratio result >/= 5.00 is 97% predictive of positivity for recombinant immunoblot assay (RIBA) and will be reported to the [place] Department of Public Health as required. Blood Venipuncture / Unknown 12/29/2023 8:16 AM LOG CHECK SCALER 12/29/2023 8:16 AM LOG CHECK SCALER us Dimitrios M [place] MD CHEMISTRY ORDERABLES Alma Delia l Result [facility] [address] [place] [address], * COLONOSCOPY (08/01/2014) us Gibson Sherman Jr., MD PROCEDURE/MINOR SHAWNA GICAL ORDERABLES Final Result from Last 3 Months or Most Recently Relevant to Health Maintenance [facility] Care Teams Fence Builder Relationship Specialty Start Date End Date Dimitrios Stewart MD [address] [place] [address] PCP - General Internal Medicine 10/21/16 Kailash Payan MD [address] [facility] [address] [place] [address] Consulting Physician Urological Surgery 12/19/22
--- OUTSIDE RECORDS SUMMARY | 2024-12-01 00:38 | XMS_ITS | Encounter Summary ---
Author Organization [facility] Address [address] [place] [address] Phone Care Team Providers Care Service Inspector Name Role Phone Dimitrios Stewart MD Primary Care Provider [phone] [phone] Kailash Payan MD Unavailable Reason for Visit * Reason Onset Date Comments Results 06/12/2022 Encounter Details Date Type Department Care Team (Late Contact Info) Description 06/12/2022 Telephone [facility] [address] [place] [address] Kailash Payan MD [address] [address] Results Social History Tobacco Use Types Packs/Day Years Used Date Smoking Tobacco: Former Cigarettes 0.3 5 Smokeless Tobacco: Never Comments:Quit 60 yrs ago Alcohol Use Standard Drinks/Week Comments Yes 2 (1 standard drink = 0.6 oz pur e alcohol) PHQ-2 Answer Date Recorded Total Score - Questions 1-9 0 02/0 07/2022 Sexually Active Control Partners Comments Yes Female Sex and Gender Information Value Date Recorded Sex Assigned at Not on file Legal Sex Male 11:54 PM CDT Gender Identity Not on file Sexual Orientation Not on file COVID-19 Exposure Response Date Recorded In the last 10 days, have yo u been in contact with someone who was confirmed or suspected to have Coronavirus/COVID-19? No / Unsure 06/05/2022 12:24 PM CDT documented as of this encounter Miscellaneous Notes * Telephone Encounter - Chantelle Diaz RN - 06/12/2022 1:53 PM CDT Call placed to pt to discuss CT results and possible removal of stones. Pt would like to have most recent and previous CT imaging compared. He has an appt scheduled at theend of the month. He will, at that time, discuss an appropriate plan with physician. documented in this encounter Plan of Treatment Upcoming Encounters Date Type Department Care Team (Late st Contact Info) Description 12/29/2024 9:00 AM AUTO BATTERY BUILDER Office Visit [facility] - Primary Care - [place] [address] [place] [address] Dimitrios Stewart MD [address] [place] [address] documented as of this encounter Visit Diagnoses Not on filedocumented in this encounter Additional Health Concerns Infection Onset Date Last Indicated Resolved Time COVID - 19 05/23/2024 05/23/2024 05/23/2024 4:10 PM CDT Assessment Noted Time PHQ-9 Depression Total Score: 0 12/17/19 8:00 AM AUTO BATTERY BUILDER documented as of this encounter Care Teams Service Inspector Relationship Specialty Start Date End Date Dimitrios Stewart MD [address] [place] [address] PCP - General Internal Medicine 10/21/16 Kailash Payan MD #2 [facility], [address] [address] Consulting Physician Urological Surgery 12/19/22 documented as of this encounter
== END 2024-11-25 16:10 | disposition home or self-care (01) ==
LOC: ANHSURGERY 10:10 → ANH3MEDSUR 13:46
PROVIDERS: PCP Internal Medicine; Visit Provider Urology
PROC: 0TCB8ZZ Extirpation of Matter from Bladder, Via Natural or Artificial Opening Endoscopic (ICD-10-PCS; CPT 52352; principal; 2024-11-24 08:30)
DX: N21.0 Calculus in bladder (principal); N40.1 Benign prostatic hyperplasia with lower urinary tract symptoms; E66.9 Obesity, unspecified; Z68.31 Body mass index [BMI] 31.0-31.9, adult; Z79.1 Long term (current) use of non-steroidal anti-inflammatories (NSAID)
CPT/HCPCS: 52318; 36415; 80048; 82365; 85014; 85018; 88300; A9270; C1757; C1758; J0690; J1100; J2003; J2250; J2270; J2405; J2704; J3010; J7120; J7121

== ENCOUNTER 2024-11-27 15:40 | Emergency (ER) | payer MEDICARE, SELFPAY ==
[2024-11-27 15:42] VITALS: BP 119/86; PULSE 102; RESP 18; TEMP 36.7; O2SAT 98
--- NOTE | 2024-11-27 16:15 | ED.MALEGU ---
HPI - Male Genitourinary General Chief complaint: Urogenital-Male Stated complaint: clogged urinary catheter Time Seen by Provider: 11/27/24 15:42 Source: patient Mode of arrival: ambulatory Limitations: no limitations History of Present Illness HPI Narrative: This is a 74-year-old male with history of BPH and recent bladder stone status pos lithotripsy and catheter placement, presents to the emergency department complaining leakage around his catheter. The patient states this is accompanied by mild suprapubic abdominal pain though denies fevers, chills or flank pain. He states his catheter had to be flushed and exchange during his recent admission. He has no other complaints at this time. Related Data Home Medications ?Medication ?Instructions ?Recorded ?Confirmed ?Last Taken ?Type finasteride 5 mg tablet 5 mg PO DAILY 11/15/24 11/15/24 Unknown History ibuprofen 200 mg capsule 400 mg PO TID PRN pain 11/15/24 11/15/24 Unknown History levofloxacin 500 mg tablet 500 mg PO Q24H 11/15/24 11/15/24 Unknown History multivitamin (Daily Multi-Vitamin 1 tablet PO DAILY 11/15/24 11/15/24 Unknown History tablet) omeprazole 20 mg capsule,delayed 20 mg PO DAILY 11/15/24 11/15/24 Unknown History release tamsulosin 0.4 mg capsule 0.4 mg PO Q24H 11/15/24 11/15/24 Unknown History Allergies Allergy/AdvReac Type Severity Reaction Status Date / Time Sulfa (Sulfonamide Allergy Unknown UNKNOWN Verified 11/27/24 15:55 Antibiotics) Review of Systems Review of Systems: All systems reviewed & are unremarkable except as noted in HPI and below PMFSH Past Medical History Medical History BPH loc w urin obs/LUTS Bladder stone Surgical History Surgical History History of lithotripsy Social History Social History Smoking status: Never smoker Alcohol intake: current Drinks per week: 3 Do You Feel Safe in your Home?: Yes Lack of Transportation: No Lack of Food: Never True Current Housing: I Have Housing Concerned About Future Housing: No Difficulty Paying Gas/Electric Bills: No Difficulty Paying for Meds: No Currently Unemployed: No Education: Decline to Answer Difficulty w/ Childcare or Family Care: No Living arrangements: with family Additional living arrangements comments: -GROUP RESERVATIONS COORDINATOR Spiritual care concerns: No Exam Narrative: GENERAL: Well-developed, well-nourished, and in no acute distress. HEAD: Normocephalic, atraumatic. EYES: PERRLA and EOMI. CHEST: Clear to auscultation. No respiratory distress. No wheezes rales or rhonchi HEART: Regular rate and rhythm. No murmur heard. Normal peripheral pulses. ABDOMEN: Soft, minimal suprapubic tenderness to palpation without rebound or guarding, the lower abdomen appears mildly distended, normal active bowel sounds. : a 3 way Ames catheter is in place with no noted bleeding clear yellow urine is noted in the patient's bag SKIN: Warm, dry, no rash. NEURO: Alert and oriented x3. No focal deficit. Moving all 4 limbs spontaneously PSYCH: Normal mood and affect. Course Course Emergency Course: 17:02 - Nursing staff was able to flush the patient's catheter without significant difficulty and with passage of urine. The patient states he feels improved afterwards. Bedside ultrasound by me demonstrates the catheter tip and bulb in appropriate position with a decompressed bladder. The patient does have an enlarged prostate. Will irrigate the bladder with plan for discharge and Neurology follow-up. 17:51 - The patient's bladder was irrigated with 2 L of fluid without difficulty. Will discharge. I discussed the findings and recommendations with the patient. Discussed return and emergency precautions including signs/symptoms of acute abdomen and sepsis. The patient voiced understanding and agreement with the plan. All questions answered to his satisfaction. Vital Signs Vital signs: Vital Signs Temperature 98.0 F 11/27/24 15:42 Pulse Rate 102 H 11/27/24 15:42 Respiratory Rate 18 11/27/24 15:42 Blood Pressure 119/86 11/27/24 15:42 Pulse Oximetry 98 11/27/24 15:42 Oxygen Delivery Room Air 11/27/24 15:42 Temperature 98.0 F 11/27/24 15:42 Pulse Rate 89 11/27/24 18:15 Respiratory Rate 15 11/27/24 18:15 Blood Pressure 130/79 11/27/24 18:15 Pulse Oximetry 98 11/27/24 18:15 Oxygen Delivery Room Air 11/27/24 15:42 MDM - Male Genitourinary MDM Narrative Medical decision making narrative: plan: Bedside ultrasound, catheter flushing, reassess Differential Diagnosis Differential diagnosis: Likely other ( catheter malfunction, catheter obstruction, urinary retention, other) Discharge Plan Discharge Clinical Impression: Abdominal pain, suprapubic Malfunction of Ames catheter Qualifiers: Encounter type: initial encounter Qualified Code(s): T83.011A - Breakdown (mechanical) of indwelling urethral catheter, initial encounter Patient Disposition: Home, Self-Care Condition: Stable Instructions: Antibiotic Form, Ames Catheter Placement and Care (ED) Additional Instructions: You were seen in the emergency department. After flushing, appears your catheter is working appropriately. A bedside ultrasound showed the catheter in appropriate position. I recommend following up with your urologist as scheduled. If you develop severe abdominal pain, abdominal pain with fevers, persistent vomiting, or if you have other emergent concerns for life, limb, or eyesight, return to the emergency department. Patient Language: Guinean Prescriptions: No Action finasteride 5 mg tablet 5 mg PO DAILY tamsulosin 0.4 mg capsule 0.4 mg PO Q24H levofloxacin 500 mg tablet 500 mg PO Q24H omeprazole 20 mg capsule,delayed release(DR/EC) 20 mg PO DAILY multivitamin [Daily Multi-Vitamin] Tablet 1 tablet PO DAILY ibuprofen 200 mg capsule 400 mg PO TID PRN (Reason: pain) hydrocodone-acetaminophen 5-325 mg tablet 1 - 2 tablet PO Q6H PRN (Reason: pain) Qty: 20 0RF cephalexin 500 mg capsule 500 mg PO Q8H Qty: 9 0RF Follow-up/Referrals: Terry,Dimitrios Spears MD [Primary Care Provider] - 2 Weeks Mandeep Jacob MD [Physician] - (Follow up as scheduled) Time of Disposition: 17:52
[2024-11-27] MEDS: NACL 0.9% IRRIGATION POUR BOTTLE 500 ML (16:38)
[2024-11-27 18:15] VITALS: BP 130/79; PULSE 89; RESP 15; O2SAT 98
--- OUTSIDE RECORDS SUMMARY | 2024-12-01 10:46 | XMS_ITS | Clinical Summary ---
Author Organization [facility] Address [address] [place] [address] Phone Care Team Providers Care Supervisor Cigar Making Hand Name Role Phone Dimitrios Stewart MD Primary Care Provider [phone] [phone] Kailash Payan MD Unavailable Allergies Active Allergy [...] Department Care Team Description 11/11/2024 Telephone [facility] - Primary [facility] - [place] [address] [place] [address] Dimitrios Stewart MD Referral (UROLOGY) from Last 3 Months Immunizations Immunization Administration Dates Next Due Covid-19 Vaccine, Vector-nr, Rs-ad26, Pf, 0.5 Ml ([email or web address]) 04/17/2021 PNEUMONIA ADULT IM PPSV23 10/21/2016 Pneumococcal [...] = 0.6 oz pur e alcohol) Occasionally [employer] Utilities Answer Date Recorded In the past 12 months has [employer] electric, gas, oil, or water [employer] threatened to shut off services in your [...] How often do you attend chur or zoroastrian services? Patient declined 05/23/2024 Do you belong to any clubs o r organizations such as lutheran groups, unions, fraternal or athletic groups, or [...] Total Score - Questions 1-9 0 12/11 [facility] [place] of Occupat ional Health - Occupational Stress [...] place to sleep or slept in a long-term (including now)? No 12/28/2023 Housing Stability Vital Sign Answer Jonathan e Recorded In the last 12 months, was t here a time when you were not able to pay the mortgage or rent on time? No 05/23/2024 In the past 12 months, how m any times have you moved where you were living? 0 05/23/2024 At any time in the past 12 m [facility], were you homeless or living in a long-term (including now)? No 05/23/2024 Education Answer Date [...] st Contact Info) Description 12/29/2024 9:00 AM HOSPITAL MONITOR Office Visit [facility] - Primary Care - [place] [address] [place] [address] Dimitrios Stewart MD [address] [place] [address] Health Maintenance Due Date Last Done Comments [...] HEMOGLOBIN & HEMATOCRIT (H&H) 11/25/2024 12:00 AM HOSPITAL MONITOR BASIC METABOLIC PANEL W/ CALCIUM TOTAL 11/25/2024 12:00 AM HOSPITAL MONITOR PATHOLOGY SURGICAL 11/24/2024 12 :00 AM HOSPITAL MONITOR UROLOGY PROCEDURE 11/24/2024 12: 00 AM HOSPITAL MONITOR HEPATITIS C ANTIBODY Routine 12/29/2023 8:16 AM HOSPITAL MONITOR Encounter for hepatitis C screening test for low risk patient HM COLONOSCOPY Routine 08/01/2014 from Last 3 Months or Most Recently Relevant to Health Maintenance Results * HEMOGLOBIN & HEMATOCRIT (H&H) (11/25/2024 12:00 AM HOSPITAL MONITOR) 11/25/2024 us Provider Scan HEMATOLOGY ORDERABLES Final Resu lt Performing Organization Address City/[facility] de Phone Number SCAN * BASIC METABOLIC PANEL W/ CALCIUM TOTAL (11/25/2024 12:00 AM HOSPITAL MONITOR) 11/25/2024 us Provider Scan CHEMISTRY ORDERABLES Final Resul t Performing Organization Address City/[facility] Co de Phone Number SCAN * UROLOGY PROCEDURE (11/24/2024 12:00 AM HOSPITAL MONITOR) 11/24/2024 us Provider Scan GEN ORDERS Final Result Performing Organization Address [facility] de Phone Number SCAN * PATHOLOGY SURGICAL (11/24/2024 12:00 AM HOSPITAL MONITOR) 11/24/2024 us Provider Scan PATHOLOGY/CYTOLOGY ORDERABLES Fi nal Result Performing Organization Address [facility] de Phone Number SCAN * HEPATITIS C ANTIBODY (12/29/2023 8:16 AM HOSPITAL MONITOR) hepatitis C antibody 0.22 <1 S/CO [facility] ARCH [id number] B 12/31/2023 4:06 AM HOSPITAL MONITOR [facility] Comment: Signal/Cutoff ratio ??< 0.79 is Nondetected Signal/Cutoff ratio 0.80-0.99 is Grayzone Signal/Cutoff ratio > 0.99 is Detected Supplemental assays are recommended if signal/cutoff ratio is >/=1.00. ??Signal/cutoff ratio result >/= 5.00 is 97% predictive of positivity for recombinant immunoblot assay (RIBA) and will be reported to the [place] Department of Public Health as required. Blood Venipuncture / Unknown 12/29/2023 8:16 AM HOSPITAL MONITOR 12/29/2023 8:16 AM HOSPITAL MONITOR us Dimitrios M Carbon MD CHEMISTRY ORDERABLES Alma Delia l Result [facility] [address] [place] [address], * COLONOSCOPY (08/01/2014) us Gibson Sherman Jr., MD PROCEDURE/MINOR [place]AW[place] GICAL ORDERABLES Final Result from Last 3 Months or Most Recently Relevant to Health Maintenance Insurance [facility] Care Teams Supervisor Cigar Making Hand Relationship Specialty Start Date End Date Dimitrios Stewart MD [address] [place] [address] PCP - General Internal Medicine 10/21/16 Kailash Payan MD #2 [facility] [address] [place] [address] Consulting Physician Urological Surgery 12/19/22
--- OUTSIDE RECORDS SUMMARY | 2024-12-01 10:46 | XMS_ITS | Encounter Summary ---
Author Organization [facility] Address [address] [place] [address] Phone Care Team Providers Care Cementer Name Role Phone Dimitrios Stewart MD Primary Care Provider [phone] [phone] Kailash Payan MD Unavailable Reason for Visit * Reason Comments Medication Refill Encounter Details Date Type Department Care Team (Late st Contact Info) Description 04/05/2024 Refill [facility] - Primary Care - [place] [address] [place] [address] Dimitrios Stewart MD [address] [place] [address] Medication Refill Social History Tobacco Use Types Packs/Day Years Used Date Smoking Tobacco: Former Cigarettes 0.3 5 Smokeless Tobacco: Never Comments:Quit 60 yrs ago Alcohol Use Standard Drinks/Week Comments Yes 2 (1 standard drink = 0.6 oz pur e alcohol) [facility] Utilities Answer Date Recorded In the past [...] often do you attend chur ch or hoahaoism services? Never 12/28/2023 Do you belong to any clubs o r organizations such as pentecostalism groups, unions, fraternal or athletic groups, or [...] Total Score - Questions 1-9 0 12/11 [facility] of Occupat ional Health - Occupational Stress [...] place to sleep or slept in a fdc (including now)? No 12/28/2023 Education Answer Date [...] st Contact Info) Description 12/29/2024 9:00 AM HISTORIAN DRAMATIC ARTS Office Visit [facility] - Primary Care - [place] [address] [place] [id number] Dimitrios Stewart MD [address] [place] [address] documented as of this encounter Visit Diagnoses Not on filedocumented in this encounter Additional Health Concerns Infection Onset Date Last Indicated Resolved Time COVID - 19 05/23/2024 05/23/2024 05/23/2024 4:10 PM CDT Assessment Noted Time PHQ-9 Depression Total Score: 0 12/29/19 24 7:58 AM HISTORIAN DRAMATIC ARTS documented as of this encounter Care Teams Cementer Relationship Specialty Start Date End Date Dimitrios Stewart MD [address] [place] [address] PCP - General Internal Medicine 10/21/16 Kailash Payan MD [address] [address] Consulting Physician Urological Surgery 12/19/22 documented as of this encounter
--- OUTSIDE RECORDS SUMMARY | 2024-12-01 10:46 | XMS_ITS | Encounter Summary ---
Author Organization [facility] Address [address] [place] [address] Phone Care Team Providers Care Grain Mill Products Inspector Name Role Phone Dimitrios Stewart MD Primary Care Provider [phone] [phone] Kailash Payan MD Unavailable Reason for Visit * Reason Onset Date Comments Results 06/12/2022 Encounter Details Date Type Department Care Team (Late Contact Info) Description 06/12/2022 Telephone [facility] [address] [place] [address] Kailash Payan MD [address] [address] Results Social History Tobacco Use [...] st Contact Info) Description 12/29/2024 9:[address] DEPART[address] Office Visit [facility] - Primary Care - [place] [address] [place] [address] Dimitrios Stewart MD [address] [place] [address] documented as of this encounter Visit Diagnoses Not on filedocumented in this encounter Additional Health Concerns Infection Onset Date Last Indicated Resolved Time COVID - 19 05/23/2024 05/23/2024 05/23/2024 4:10 PM CDT Assessment Noted Time PHQ-9 Depression Total Score: 0 12/17/19 8:[address] DEPART[address] documented as of this encounter Care Teams Grain Mill Products Inspector Relationship Specialty Start Date End Date Dimitrios Stewart MD [address] [place] [address] PCP - General Internal Medicine 10/21/16 Kailash Payan MD #2 [facility], [address] [address] Consulting Physician Urological Surgery 12/19/22 documented as of this encounter
== END 2024-11-27 18:16 | disposition home or self-care (01) ==
PROVIDERS: Emergency Provider Preventive Medicine Aerospace Medicine; PCP Internal Medicine
DX: R10.2 Pelvic and perineal pain (principal); T83.011A Breakdown (mechanical) of indwelling urethral catheter, initial encounter
CPT/HCPCS: 99282

== ENCOUNTER 2025-02-13 13:45 | Emergency (ER) | payer MEDICARE, SELFPAY ==
--- NOTE | ~2025-02-13 | CT_ITS ---
CT abdomen pelvis wo con Ordering provider: Kimberley Bailey PA-C History: 74 years Male with . flank pain, dysuria, hematuria . Comparison: September 07, 2024. Technique: CT abdomen and pelvis without IV and without oral contrast. Automated exposure control and iterative reconstruction technique were employed. The dose-length product was 606.27 mGy-cm. Findings: VISUALIZED LOWER CHEST: Dependent atelectatic changes in the heart UPPER ABDOMINAL ORGANS: Liver: Postoperative changes. Normal residual portion. Gallbladder: Status post cholecystectomy. She Spleen: Normal. Stomach/duodenum: Small sliding hiatus hernia. Pancreas: Normal. Adrenals: Small nodule seen in the left adrenal measuring 1.2 cm. Kidneys: Normal. PELVIC ORGANS: The bladder shows thickened wall suggestive of cystitis. Grossly enlarged prostate gonzalo suring 8 x 6.8 x 8.4 cm BOWEL AND MESENTERY: Colon: No evidence of diverticulitis.. Normal appendix. Small Bowel: Normal. No obstruction. Peritoneum/mesentery: No free air or free fluid. No mesenteric lymphadenopathy. RETROPERITONEUM: Normal aorta. No retroperitoneal lymphadenopathy. MUSCULOSKELETAL: Superficial soft tissues: A fat-containing inguinal hernia is seen bilaterally. Otherwise, The superf icial soft tissues are normal. Bones: Age appropriate degenerative changes of the spine. IMPRESSION: 1. Grossly enlarged prostate with chronic cystitis. No definite kidney stones. 2. No evidence of appendicitis, diverticulitis or intestinal obstruction Reviewed, dictated and finalized at location A.
[2025-02-13 14:09] VITALS: BP 132/88; PULSE 82; RESP 16; TEMP 36.7; O2SAT 97
--- NOTE | 2025-02-13 15:15 | ED.MALEGU ---
HPI - Male Genitourinary General Chief complaint: Urogenital-Male <Kimberley Bailey PA-C - Last Filed: 02/13/25 19:03> Stated complaint: Blood in urine, back pain <Kimberley Bailey PA-C - Last Filed: 02/13/25 19:03> Time Seen by Provider: 02/13/25 15:15 <Kimberley Bailey PA-C - Last Filed: 02/13/25 19:03> Focused HPI: This is a 74 year old male that presents to the ER for dysuria and hematuria. Also reports right sided back pain. Started this afternoon. Reports history of bladder stones. GENERAL: Well-appearing, well-nourished, and in no acute distress. HEAD: Normocephalic, atraumatic. CHEST: Clear to auscultation. ?No respiratory distress. HEART: Regular rate and rhythm.? NEURO: ?Alert and oriented x3. Patient screened in triage and initial orders placed.? ?Additional care and disposition to be based upon?diagnostic testing and treatment. <Kimberley Bailey PA-C - Last Filed: 02/13/25 19:03> Source: patient <Robi Bauer MD - Last Filed: 02/13/25 17:52> Mode of arrival: ambulatory <Robi Bauer MD - Last Filed: 02/13/25 17:52> Limitations: no limitations <Robi Bauer MD - Last Filed: 02/13/25 17:52> History of Present Illness HPI Narrative: 74-year-old with a history of BPH, bladder stone here with a complaint of blood in his urine. Patient was driving from [place], [place] reached [place] he started having severe pain in night to use the restroom he states that he had severe pain while urinating and also noticed blood in the urine. Patient states that he had to stop again to urinate ,his pain was better had little blood and by the time he reached our ER his symptoms have much improved . He states he has been taking meds for prostrate as prescribed . Now he is able to urinate without any difficulty . <Robi Bauer MD - Last Filed: 02/13/25 17:52> Onset (ago): hour(s) (4) <Robi Bauer MD - Last Filed: 02/13/25 17:52> Duration: improved <Robi Bauer MD - Last Filed: 02/13/25 17:52> Relieving factors: urination <Robi Bauer MD - Last Filed: 02/13/25 17:52> Exacerbating factors: none <Robi Bauer MD - Last Filed: 02/13/25 17:52> Related Data Home medications: Home Medications ?Medication ?Instructions ?Recorded ?Confirmed ?Last Taken ?Type finasteride 5 mg tablet 5 mg PO DAILY 11/15/24 11/15/24 Unknown History ibuprofen 200 mg capsule 400 mg PO TID PRN pain 11/15/24 11/15/24 Unknown History levofloxacin 500 mg tablet 500 mg PO Q24H 11/15/24 11/15/24 Unknown History multivitamin (Daily Multi-Vitamin 1 tablet PO DAILY 11/15/24 11/15/24 Unknown History tablet) omeprazole 20 mg capsule,delayed 20 mg PO DAILY 11/15/24 11/15/24 Unknown History release tamsulosin 0.4 mg capsule 0.4 mg PO Q24H 11/15/24 11/15/24 Unknown History <Kimberley Bailey PA-C - Last Filed: 02/13/25 19:03> Allergies/Adverse reactions: Allergies Allergy/AdvReac Type Severity Reaction Status Date / Time Sulfa (Sulfonamide Allergy Unknown UNKNOWN Verified 02/13/25 13:46 Antibiotics) <Kimberley Bailey PA-C - Last Filed: 02/13/25 19:03> Review of Systems Review of Systems: All systems reviewed & are unremarkable except as noted in HPI and below <Robi Bauer MD - Last Filed: 02/13/25 17:52> Constitutional: Constitutional: Reports no additional constitutional complaints <Robi Bauer MD - Last Filed: 02/13/25 17:52> ENT: Reports system reviewed and no additional complaints, except as documented <Robi Bauer MD - Last Filed: 02/13/25 17:52> Cardiovascular: Cardiovascular: Reports no additional cardiovascular complaints <Robi Bauer MD - Last Filed: 02/13/25 17:52> Respiratory: Respiratory: Reports no additional respiratory complaints <Robi Bauer MD - Last Filed: 02/13/25 17:52> Gastrointestinal: Gastrointestinal: Reports no additional gastrointestinal complaints <Robi Bauer MD - Last Filed: 02/13/25 17:52> Genitourinary: Genitourinary: Reports as per HPI <Robi Bauer MD - Last Filed: 02/13/25 17:52> Musculoskeletal: Musculoskeletal: Reports no additional musculoskeletal complaints <Robi Bauer MD - Last Filed: 02/13/25 17:52> Neurologic: Reports system reviewed and no additional complaints, except as documented <Robi Bauer MD - Last Filed: 02/13/25 17:52> Endocrine: Endocrine: Reports no additional endocrine complaints <Robi Bauer MD - Last Filed: 02/13/25 17:52> PMFSH Past Medical History Medical History: Medical History BPH loc w urin obs/LUTS Bladder stone <Kimberley Bailey PA-C - Last Filed: 02/13/25 19:03> Surgical History Surgical History: Surgical History History of lithotripsy <Kimberley Bailey PA-C - Last Filed: 02/13/25 19:03> Social History Social History: Social History Smoking status: Never smoker Alcohol intake: current Drinks per week: 3 Do You Feel Safe in your Home?: Yes Lack of Transportation: No Lack of Food: Never True Current Housing: I Have Housing Concerned About Future Housing: No Difficulty Paying Gas/Electric Bills: No Difficulty Paying for Meds: No Currently Unemployed: No Education: Decline to Answer Difficulty w/ Childcare or Family Care: No Living arrangements: with family Additional living arrangements comments: -[employer] Spiritual care concerns: No <Kimberley Bailey PA-C - Last Filed: 02/13/25 19:03> Exam Narrative: GENERAL: Well-appearing, well-nourished, and in no acute distress. HEAD: Normocephalic, atraumatic. EYES: PERRLA and EOMI. NECK: Supple. CHEST: Clear to auscultation. No respiratory distress. HEART: Regular rate and rhythm. No murmur heard. Normal peripheral pulses. ABDOMEN: Soft, nontender, nondistended, normal active bowel sounds. EXTREMITIES: Normal range of motion. No edema. SKIN: Warm, dry, no rash. NEURO: No focal deficits. Alert and oriented x3. PSYCH: Normal mood and affect. <Robi Bauer MD - Last Filed: 02/13/25 17:52> Course Course Emergency Course: Notified patient about his lab work, CT findings. Advised him to take antibiotic as prescribed. Drink more fluids. Also advised him to follow-up with Dr. Jacob the next week . <Robi Bauer MD - Last Filed: 02/13/25 17:52> Vital Signs Vital signs: Vital Signs Temperature 98.1 F 02/13/25 14:09 Pulse Rate 82 02/13/25 14:09 Respiratory Rate 16 02/13/25 14:09 Blood Pressure 132/88 02/13/25 14:09 Pulse Oximetry 97 02/13/25 14:09 Oxygen Delivery Room Air 02/13/25 14:09 Temperature 98.1 F 02/13/25 14:09 Pulse Rate 71 02/13/25 17:58 Respiratory Rate 18 02/13/25 17:58 Blood Pressure 130/95 H 02/13/25 17:58 Pulse Oximetry 95 02/13/25 17:58 Oxygen Delivery Room Air 02/13/25 14:09 <Kimberley Bailey PA-C - Last Filed: 02/13/25 19:03> Vital Signs Temperature 98.1 F 02/13/25 14:09 Pulse Rate 82 02/13/25 14:09 Respiratory Rate 16 02/13/25 14:09 Blood Pressure 132/88 02/13/25 14:09 Pulse Oximetry 97 02/13/25 14:09 Oxygen Delivery Room Air 02/13/25 14:09 Temperature 98.1 F 02/13/25 14:09 Pulse Rate 71 02/13/25 17:58 Respiratory Rate 18 02/13/25 17:58 Blood Pressure 130/95 H 02/13/25 17:58 Pulse Oximetry 95 02/13/25 17:58 Oxygen Delivery Room Air 02/13/25 14:09 <Robi Bauer MD - Last Filed: 02/13/25 17:52> MDM - Male Genitourinary Differential Diagnosis Differential diagnosis: Likely urinary tract infection, prostatitis and acute retention of urine <Robi Bauer MD - Last Filed: 02/13/25 17:52> Medical Records Attestation: I reviewed the patient's medical records. <Robi Bauer MD - Last Filed: 02/13/25 17:52> Lab Data Attestation: I reviewed the patient's lab results. <Robi Bauer MD - Last Filed: 02/13/25 17:52> Result diagrams: 02/13/25 15:25 02/13/25 15:25 <Kimberley Bailey PA-C - Last Filed: 02/13/25 19:03> Labs: Lab Results 02/13/25 Range/Units 15:25 WBC 7.8 (4.5-10.0) K/mm3 RBC 5.24 (4.6-6.20) M/mm3 Hgb 14.8 (14.0-18.0) g/dL Hct 44.2 (42.0-52.0) % MCV 84.4 (80-100) fl MCH 28.2 (26-34) pg MCHC 33.5 (32-36) g/dl RDW 12.7 (11.5-14.5) % Plt Count 221 (150-375) k/mm3 MPV 8.7 (7.4-10.4) fl Immature Gran % (Auto) 0.3 (0-0.5) % Neut % (Auto) 62.8 (45.5-73.1) % Lymph % (Auto) 24.0 (18.3-44.2) % [place] % (Auto) 9.5 H (2.6-8.5) % Eos % (Auto) 2.6 (0-4.4) % Baso % (Auto) 0.8 (0.2-1.2) % Lymph # (Auto) 1.86 (0.9-3.2) K/mm3 [place] # (Auto) 0.7 H (0.1-0.6) K/mm3 Eos # (Auto) 0.2 (0-0.3) K/mm3 Baso # (Auto) 0.1 (0.0-0.1) K/mm3 Abs Immat Gran (auto) 0.02 (0.00-0.031) K/mm3 Absolute Neuts (auto) 4.9 (1.3-6.7) K/mm3 Absolute Nucleated RBC 0.000 (0.0-0.012) K/mm3 Nucleated RBC % 0.0 (0.0-0.2) % Sodium 138 (137-145) mmol/L Potassium 4.4 (3.4-5.0) mmol/L Chloride 103 (98-107) mmol/L Carbon Dioxide 23 (22-30) mmol/L Anion Gap 12 (4-12) mmol/L BUN 23 H D (9-20) mg/dL Creatinine 1.07 (0.7-1.3) mg/dL Estim Creat Clear Calc 67 ml/min Estimated GFR > 60 (59 - ) Glucose 112 H (65-110) mg/dL Calcium 8.6 (8.4-10.2) mg/dL Total Bilirubin 0.9 (0.2-1.3) mg/dL AST 42 (17-59) U/L ALT 54 H (6-50) U/L Alkaline Phosphatase 54 (38-126) U/L Total Protein 8.0 (6.3-8.2) g/dL Albumin 4.5 (3.5-5.1) g/dL Lipase 93 (23-300) U/L Urine Color Yellow (Yellow) Urine Appearance Clear (Clear) Urine pH 5.5 (5.0-9.0) Ur Specific [place] 1.017 (1.001-1.035) Urine Protein Negative (Negative) mg/dL Urine Glucose (UA) Negative (Negative) mg/dL Urine Ketones Negative (Negative) mg/dL Ur Blood (Man) 3+ H (Negative) Urine Nitrate Negative (Negative) Urine Bilirubin Negative (Negative) Urine Urobilinogen 1.0 (<2.0) mg/dL Leukocyte Esterase Rfl Trace H (Negative) REMI/UL Urine RBC >100 H (0-2) /hpf Urine WBC 0-5 (0-3) /hpf Ur Squamous Epith Cells None seen (Few) /hpf Urine Bacteria None seen /hpf Urine Casts 0-2 <Kimberley Bailey PA-C - Last Filed: 02/13/25 19:03> Lab Results 02/13/25 Range/Units 15:25 WBC 7.8 (4.5-10.0) K/mm3 RBC 5.24 (4.6-6.20) M/mm3 Hgb 14.8 (14.0-18.0) g/dL Hct 44.2 (42.0-52.0) % MCV 84.4 (80-100) fl MCH 28.2 (26-34) pg MCHC 33.5 (32-36) g/dl RDW 12.7 (11.5-14.5) % Plt Count 221 (150-375) k/mm3 MPV 8.7 (7.4-10.4) fl Immature Gran % (Auto) 0.3 (0-0.5) % Neut % (Auto) 62.8 (45.5-73.1) % Lymph % (Auto) 24.0 (18.3-44.2) % [place] % (Auto) 9.5 H (2.6-8.5) % Eos % (Auto) 2.6 (0-4.4) % Baso % (Auto) 0.8 (0.2-1.2) % Lymph # (Auto) 1.86 (0.9-3.2) K/mm3 [place] # (Auto) 0.7 H (0.1-0.6) K/mm3 Eos # (Auto) 0.2 (0-0.3) K/mm3 Baso # (Auto) 0.1 (0.0-0.1) K/mm3 Abs Immat Gran (auto) 0.02 (0.00-0.031) K/mm3 Absolute Neuts (auto) 4.9 (1.3-6.7) K/mm3 Absolute Nucleated RBC 0.000 (0.0-0.012) K/mm3 Nucleated RBC % 0.0 (0.0-0.2) % Sodium 138 (137-145) mmol/L Potassium 4.4 (3.4-5.0) mmol/L Chloride 103 (98-107) mmol/L Carbon Dioxide 23 (22-30) mmol/L Anion Gap 12 (4-12) mmol/L BUN 23 H D (9-20) mg/dL Creatinine 1.07 (0.7-1.3) mg/dL Estim Creat Clear Calc 67 ml/min Estimated GFR > 60 (59 - ) Glucose 112 H (65-110) mg/dL Calcium 8.6 (8.4-10.2) mg/dL Total Bilirubin 0.9 (0.2-1.3) mg/dL AST 42 (17-59) U/L ALT 54 H (6-50) U/L Alkaline Phosphatase 54 (38-126) U/L Total Protein 8.0 (6.3-8.2) g/dL Albumin 4.5 (3.5-5.1) g/dL Lipase 93 (23-300) U/L Urine Color Yellow (Yellow) Urine Appearance Clear (Clear) Urine pH 5.5 (5.0-9.0) Ur Specific [place] 1.017 (1.001-1.035) Urine Protein Negative (Negative) mg/dL Urine Glucose (UA) Negative (Negative) mg/dL Urine Ketones Negative (Negative) mg/dL Ur Blood (Man) 3+ H (Negative) Urine Nitrate Negative (Negative) Urine Bilirubin Negative (Negative) Urine Urobilinogen 1.0 (<2.0) mg/dL Leukocyte Esterase Rfl Trace H (Negative) REMI/UL Urine RBC >100 H (0-2) /hpf Urine WBC 0-5 (0-3) /hpf Ur Squamous Epith Cells None seen (Few) /hpf Urine Bacteria None seen /hpf Urine Casts 0-2 <Robi Bauer MD - Last Filed: 02/13/25 17:52> Imaging Data Radiologist's impression: ITS Impressions Abdomen/Pelvis CT 02/13/25 15:58 IMPRESSION: 1. Grossly enlarged prostate with chronic cystitis. No definite kidney stones. 2. No evidence of appendicitis, diverticulitis or intestinal obstruction <Robi Bauer MD - Last Filed: 02/13/25 17:52> Critical Care Time Critical Care Time Critical Care Time: No <Kimberley Bailey PA-C - Last Filed: 02/13/25 19:03> Discharge Plan Discharge Clinical Impression: Cystitis Hematuria Qualifiers: Hematuria type: gross Qualified Code(s): R31.0 - Gross hematuria <Kimberley Bailey PA-C - Last Filed: 02/13/25 19:03> Patient Disposition: Home <Kimberley Bailey PA-C - Last Filed: 02/13/25 19:03> Condition: Stable <Kimberley Bailey PA-C - Last Filed: 02/13/25 19:03> Instructions: Antibiotic Form, Urinary Tract Infection in Men (DC) <Kimberley Bailey PA-C - Last Filed: 02/13/25 19:03> Patient Language: [place]de[place] <Kimberley Bailey PA-C - Last Filed: 02/13/25 19:03> Prescriptions: New cephalexin 500 mg capsule 500 mg PO Q12H 7 Days Qty: 14 0RF No Action finasteride 5 mg tablet 5 mg PO DAILY tamsulosin 0.4 mg capsule 0.4 mg PO Q24H levofloxacin 500 mg tablet 500 mg PO Q24H omeprazole 20 mg capsule,delayed release(DR/EC) 20 mg PO DAILY multivitamin [Daily Multi-Vitamin] Tablet 1 tablet PO DAILY ibuprofen 200 mg capsule 400 mg PO TID PRN (Reason: pain) hydrocodone-acetaminophen 5-325 mg tablet 1 - 2 tablet PO Q6H PRN (Reason: pain) Qty: 20 0RF cephalexin 500 mg capsule 500 mg PO Q8H Qty: 9 0RF <Kimberley Bailey PA-C - Last Filed: 02/13/25 19:03> Follow-up/Referrals: Terry,Dimitrios Spears MD [Primary Care Provider] - Mandeep Jacob MD [Physician] - <Kimberley Bailey PA-C - Last Filed: 02/13/25 19:03> Time of Disposition: 17:51 <Kimberley Bailey PA-C - Last Filed: 02/13/25 19:03> 17:51 <Robi Bauer MD - Last Filed: 02/13/25 17:52>
[2025-02-13 15:31] LABS: Basophils Absolute Auto 0.1 K/mm3 (0.0-0.1); Basophils Percent Auto 0.8 % (0.2-1.2); Eosinophils Absolute Auto 0.2 K/mm3 (0-0.3); Eosinophils Percent Auto 2.6 % (0-4.4); Hematocrit 44.2 % (42.0-52.0); Hemoglobin 14.8 g/dL (14.0-18.0); Immature Granulocyte Absolute 0.02 K/mm3 (0.00-0.031); Immature Granulocyte Percent A 0.3 % (0-0.5); Lymphocytes Absolute Auto 1.86 K/mm3 (0.9-3.2); Mean Corpuscular HGB Conc 33.5 g/dl (32-36); Mean Corpuscular Hemoglobin 28.2 pg (26-34); Mean Corpuscular Volume 84.4 fl (80-100); Mean Platelet Volume 8.7 fl (7.4-10.4); Monocytes Absolute Auto 0.7 K/mm3 (0.1-0.6); Monocytes Percent Auto 9.5 % (2.6-8.5); Neutrophils Absolute Auto 4.9 K/mm3 (1.3-6.7); Neutrophils Percent Auto 62.8 % (45.5-73.1); Platelet Count Result 221 k/mm3 (150-375); Red Blood Count 5.24 M/mm3 (4.6-6.20); Red Cell Distribution Width 12.7 % (11.5-14.5); White Blood Count 7.8 K/mm3 (4.5-10.0)
[2025-02-13 15:38] LABS: Add Urine Microscopic? YES; Appearance Urine Clear (Clear); Bacteria Urine None Seen /hpf; Bilirubin Urine Negative (Negative); Blood Urine 3+ (Negative); Color Urine Yellow (Yellow); Glucose Urine UA Negative (Negative); Ketones Urine Negative (Negative); Leukocyte Esterase Ur Trace LEU/UL (Negative); Nitrate Urine Negative (Negative); Non Pathogenic Casts 0-2; Protein Urine Negative (Negative); RBC Urine >100 /hpf (0-2); Specific Grav Ur 1.017 (1.001-1.035); Squamous Epithelial Cell Urine None Seen /hpf (Few); WBC Urine 0-5 /hpf (0-3); pH Urine 5.5 (5.0-9.0)
--- OUTSIDE RECORDS SUMMARY | 2025-02-13 15:45 | XMS_ITS | Clinical Summary ---
Author Organization [facility] Address [address] [place] [address] Phone Care Team Providers Care [employer] Senior [employer] Name Role Phone Dimitrios Stewart MD Primary Care Provider [phone] Mandeep Jacob MD Unavailable [phone] Allergies Active Allergy Reactions Criticality Noted Date Comments Sulfa Antibiotics Unknown 10/19/2015 Patient states he has never had this medication, was told by mother he was probably allergic since she had a reaction when she was with him Medications glucosamine-ch ondroitin 500-400 MG Capsule Take 1 Capsule by mouth 3 times daily. Active Multiple Vitamins-Alpine als (MULTIVITAMIN MEN 50+) Tablet Take 1 Tab by mouth daily. Active CRANBERRY PO Take by mouth daily. Active ELDERBERRY PO Take by mouth daily. Active triamcinolone (KENALOG) 0.1 % Cream Apply sparingly twice a day to the affected area. Rub cream in until invisible. 45 g 1 12/03/19 23 Active finasteride (PROSCAR) 5 MG Tablet Take 5 mg by mouth daily. 10/17/20 24 Active tamsulosin (FLOMAX) 0.4 MG Capsule Take 0.4 mg by mouth. 10/17/20 24 Active ASHWAGANDHA GUMMIES PO Take by mouth. Active KRILL OIL PO Take by mouth. Active MAGNESIUM PO Take by mouth. Active omeprazole (PriLOSEC) 20 MG CAPSULE DELAYED RELEASE TAKE 1 CAPSULE BY MOUTH DAILY 90 Capsule 2 01/20/20 25 Active omeprazole (PriLOSEC) 20 MG CAPSULE DELAYED RELEASE TAKE 1 CAPSULE BY MOUTH DAILY 90 Capsule 2 04/05/20 24 025 Discontinued Active Problems Problem Noted Date Diagnosed Date [...] Encounters Date Type Department Care Team Description 01/19/2025 Refill [facility] - [address] [place] [address] Dimitrios Stewart MD Medication Refill 12/29/2024 11:00 AM PRINCIPAL CONSULTANT Lab [facility] [place] [address] [facility] Arthritis; Benign prostatic hyperplasia with nocturia Discharge Disposition: Discharged to home or Selfcare 12/29/2024 9:00 AM PRINCIPAL CONSULTANT Office Visit [facility] [place] [address] Dimitrios Stewart MD Arthritis (Primary Dx); Benign prostatic hyperplasia with nocturia; Irritable bowel syndrome with both constipation and diarrhea; Gastroesophageal reflux disease without esophagitis; Seborrheic keratoses Discharge Disposition: Discharged to home or Selfcare 12/29/2024 Results Follow-Up [facility] [address] [place] [address] Dimitrios Stewart MD 12/27/2024 Travel from Last 3 Months Immunizations Immunization Administration Dates Next Due Covid-19 Vaccine, Vector-nr, Rs-ad26, Pf, 0.5 Ml (Nayatek/J&J) 04/17/2021 PNEUMONIA ADULT IM PPSV23 10/21/2016 Pneumococcal [...] = 0.6 oz pur e alcohol) Occasionally [employer] Utilities Answer Date Recorded In the past 12 months has th e electric, gas, oil, or water company threatened to shut off services in your home? No 12/27/2024 Social Connection and Isolat ion Panel [NHANES] Answer Date Recorded In a typical week, how many times do you talk on the phone with family, friends, or neighbors? Three times a week 12/27/2024 How often do you get togethe r with friends or relatives? Once a week 12/27/2024 How often do you attend chur ch or buddhism services? Never 12/27/2024 Do you belong to any clubs o r organizations such as zoroastrian groups, unions, fraternal or athletic groups, or school groups? Yes 12/27/2024 How often do you attend meet ings of the clubs or organizations you belong to? More than 4 times per year 12/27/2024 Are you , , di vorced, , never , or living with a partner? 12/27/2024 AUDIT-C Answer Date Recorded Q1: How often do you have a drink containing alc ohol? 2-3 times a week 12/27/2024 Q2: How many drinks containi ng alcohol do you have on a typical day when you are drinking? 1 or 2 12/27/2024 Q3: How often do you have si x or more drinks on one occasion? Never 12/27/2024 Overall Financial Resource Strain (CARDIA) Answe r Date Recorded How hard is it for you to pa y for the very basics like food, housing, medical care, and heating? Not hard at all 12/27/2024 PHQ-2 Answer Date Recorded Total Score - Questions 1-9 0 12/11 [facility] - Occupational Stress Questionnaire Answer Date Recorded Do you feel stress - tense, restless, nervous, or anxious, or unable to sleep at night because your mind is troubled all the time - these days? Not at all 12/27/2024 Exercise Vital Sign Answer Date Recorde d On average, how many days pe r week do you engage in moderate to strenuous exercise (like a brisk walk)? 0 days 12/27/2024 On average, how many minutes do you engage in exercise at this level? 0 min 12/27/2024 Hunger Vital Sign Answer Date Recorded Within the past 12 months, y ou worried that your food would run out before you got the money to buy more. Never true 12/27/19 25 Within the past 12 months, t he food you bought just didn't last and you didn't have money to get more. Never true 12/27/2024 PRAPARE - Transportation Answer Date Re corded In the past 12 months, has l ack of transportation kept you from medical appointments or from getting medications? No 12/10 In the past 12 months, has l ack of transportation kept you from meetings, work, or from getting things needed for daily living? No 12/27/2024 Housing Stability Vital Sign Answer Jonathan e [...] place to sleep or slept in a residential (including now)? No 12/28/2023 Housing Stability Vital Sign Answer Jonathan e Recorded In the last 12 months, was t here a time when you were not able to pay the mortgage or rent on time? No 12/27/2024 In the past 12 months, how m any times have you moved where you were living? 0 12/27/2024 At any time in the past 12 m [facility], were you homeless or living in a residential (including now)? No 12/27/2024 Education Answer Date Recorded What is the [...] Sign Reading Time Taken Comments Blood Pressure 108/80 12/29/2024 9:02 AM PRINCIPAL CONSULTANT Pulse 81 12/29/2024 9:02 AM PRINCIPAL CONSULTANT Temperature 36.5 C (97.7 F) 12/29/2024 9:02 AM PRINCIPAL CONSULTANT Respiratory Rate 20 12/29/2024 9:02 AM PRINCIPAL CONSULTANT Oxygen Saturation 97% 12/29/2024 9:02 AM PRINCIPAL CONSULTANT Inhaled Oxygen Concentration - - Weight 103.9 kg (229 lb) 12/29/2024 9:02 AM PRINCIPAL CONSULTANT Height 180.3 cm (5' 11 ) 12/29/2024 9:02 AM PRINCIPAL CONSULTANT Body Mass Index 31.94 12/29/2024 9:02 AM PRINCIPAL CONSULTANT Plan of Treatment Upcoming Encounters Date Type Department Care Team (Late st Contact Info) Description 01/02/2026 8:00 AM PRINCIPAL CONSULTANT Office Visit [facility] - [address] [place] [phone] Dimitrios Stewart MD [address] [place], [place] [id number] Health Maintenance Due Date Last Done Comments [...] Procedure Name Priority Date/Time Associated Diagnosis Comments CBC WITH AUTO DIFFERENTIAL Today 12/29/2024 9:27 AM PRINCIPAL CONSULTANT Arthritis Benign prostatic hyperplasia with nocturia PSA DIAGNOSTIC,TOTAL Today 12/29/2024 9:27 AM PRINCIPAL CONSULTANT Benign prostatic hyperplasia with nocturia CMP (COMPREHENSIVE METABOLIC PANEL) Today 12/29/2024 9:27 AM PRINCIPAL CONSULTANT Arthritis Benign prostatic hyperplasia with nocturia COMPLETE BLOOD COUNT (CBC) WITH DIFF Today 12/29/2024 9:27 AM PRINCIPAL CONSULTANT Arthritis Benign prostatic hyperplasia with nocturia HEMOGLOBIN & HEMATOCRIT (H&H) 11/25/2024 12:00 AM PRINCIPAL CONSULTANT BASIC METABOLIC PANEL W/ CALCIUM TOTAL 11/25/2024 12:00 AM PRINCIPAL CONSULTANT PATHOLOGY SURGICAL 11/24/2024 12 :00 AM PRINCIPAL CONSULTANT UROLOGY PROCEDURE 11/24/2024 12: 00 AM PRINCIPAL CONSULTANT HEPATITIS C ANTIBODY Routine 12/29/2023 8:16 AM PRINCIPAL CONSULTANT Encounter for hepatitis C screening test for low risk patient HM COLONOSCOPY Routine 08/01/2014 from Last 3 Months or Most Recently Relevant to Health Maintenance Results * (ABNORMAL) CBC WITH AUTO DIFFERENTIAL (12/29/2024 9:27 AM PRINCIPAL CONSULTANT) WBC 9.04 4.00 - 12.00 10(3)/mcL 12/29/2024 12:19 PM [facility] RBC 5.20 4.40 - 5.80 10(6)/mcL 12/29/2024 12:19 PM [facility] HEMOGLOBIN (HGB) 15.3 13.0 - 16.5 g/dL 12/29/2024 12:19 PM [facility] HEMATOCRIT (HCT) 45.0 38.0 - 50.0 % 12/29/2024 12:19 PM [facility] MCV 86.5 82.0 - 96.0 fL 12/29/2024 12:19 PM [facility] MCH 29.4 26.0 - 32.0 pg 12/29/2024 12:19 PM [facility] MCHC 34.0 31.0 - 36.0 g/dL 12/29/2024 12:19 PM [facility] PLATELET COUNT 264 140 - 440 10(3)/mcL 12/29/2024 12:19 PM [facility] RDW 12.7 11.8 - 15.5 % 12/29/2024 12:19 PM [facility] MPV 8.8 8.0 - 12.6 fL 12/29/2024 12:19 PM [facility] NEUTROPHILS 57.3 40.0 - 68.0 % 12/29/2024 12:19 PM [facility] LYMPHOCYTES 26.0 19.0 - 49.0 % 12/29/2024 12:19 PM [facility] MONOCYTES 10.7 3.0 - 13.0 % 12/29/2024 12:19 PM [facility] EOSINOPHILS 5.0 0.0 - 8.0 % 12/29/2024 12:19 PM [facility] BASOPHILS 1.0 0.0 - 1.0 % 12/29/2024 12:19 PM [facility] ABSOLUTE NEUTROPHILS 5.18 1.40 - 5.30 10(3)/mcL 12/29/2024 12:19 PM [facility] ABSOLUTE LYMPHOCYTES 2.35 0.90 - 3.30 10(3)/mcL 12/29/2024 12:19 PM PRINCIPAL CONSULTANT [facility] ABSOLUTE MONOCYTES 0.97(H) 0.10 - 0.90 10(3)/mcL 12/29/2024 12:19 PM PRINCIPAL CONSULTANT [facility] ABSOLUTE EOSINOPHIL 0.45 0.00 - 0.50 10(3)/mcL 12/29/2024 12:19 PM PRINCIPAL CONSULTANT [facility] ABSOLUTE BASOPHILS 0.09 0.00 - 0.10 10(3)/mcL 12/29/2024 12:19 PM PRINCIPAL CONSULTANT [facility] NRBC PER 100 WBC 0 12/29/19 12:19 PM PRINCIPAL CONSULTANT [facility] Blood Venipuncture / Unknown 12/29/2024 9:27 AM PRINCIPAL CONSULTANT 12/29/2024 9:27 AM PRINCIPAL CONSULTANT us Dimitrios Stewart MD HEMATOLOGY ORDERABLES Fin al Result [facility] [address] [place] [address] * PSA DIAGNOSTIC,TOTAL (12/29/2024 9:27 AM PRINCIPAL CONSULTANT) PSA, TOTAL (PROSTATIC SPECIFIC ANTIGEN) 1.30 <4.00 ng/mL 12/29/2024 1:23 PM PRINCIPAL CONSULTANT [facility] Blood Venipuncture / Unknown 12/29/2024 9:27 AM PRINCIPAL CONSULTANT 12/29/2024 9:27 AM PRINCIPAL CONSULTANT Narrative [facility] - 12/29/2024 1:23 PM PRINCIPAL CONSULTANT PSA NOTE: The PSA value should be used in conjunction with information available from clinical evaluation and other diagnostic procedures. The ALINITY Total PSA assay is a Chemiluminescent Microparticle Immunoassay (CMIA) for the quantitative determination of total PSA (both free PSA and PSA complexed to [id number]) in human serum. Total PSA values obtained with different assay methods, including Orellana PSA assays, cannot be used interchangeably. us Dimitrios Stewart MD CHEMISTRY ORDERABLES Alma Delia douglas Result [facility] [address] [place] [address] * (ABNORMAL) CMP (COMPREHENSIVE METABOLIC PANEL) (12/29/2024 9:27 AM PRINCIPAL CONSULTANT) SODIUM 139 136 - 145 mmol/L 12/29/2024 1:04 PM [facility] POTASSIUM 4.3 3.5 - 5.1 mmol/L 12/29/2024 1:04 PM [facility] CHLORIDE 105 98 - 107 mmol/L 12/29/2024 1:04 PM [facility] CO2, VENOUS 25 22 - 30 mmol/L 12/29/2024 1:04 PM [facility] ANION GAP 13.3 <18.0 mmol/L 12/29/2024 1:04 PM [facility] GLUCOSE 106(H) 70 - 99 mg/dL 12/29/2024 1:04 PM [facility] BUN 17 8 - 26 mg/dL 12/29/2024 1:04 PM [facility] CREATININE, BLOOD 0.93 0.70 - 1.30 mg/dL 12/29/2024 1:04 PM [facility] BUN/CREATININE RATIO 18 12 - 20 ratio 12/29/2024 1:04 PM [facility] TOTAL PROTEIN 8.1(H) 6.0 - 8.0 g/dL 12/29/2024 1:04 PM [facility] ALBUMIN 4.5 3.5 - 5.0 g/dL 12/29/2024 1:04 PM [facility] A/G RATIO 1.3 1.0 - 2.2 12/29/2024 1:04 PM [facility] CALCIUM 9.2 8.7 - 10.5 mg/dL 12/29/2024 1:04 PM [facility] T BILI 0.8 0.2 - 1.2 mg/dL 12/29/2024 1:04 PM [facility] SGOT (AST) 40 <43 U/L 12/29/2024 1:04 PM [facility] SGPT (ALT) 42 <56 U/L 12/29/2024 1:04 PM [facility] ALKALINE PHOSPHATASE 62 40 - 150 U/L 12/29/2024 1:04 PM [facility] IS THE PATIENT REQUIRED TO BE FASTING? No 12/29/2024 1:04 PM [facility] GFR, ESTIMATED >60 >=60 12/29/2024 1:04 PM [facility] Comment: Creatinine Clearance is the preferred criteria for selecting drug dose adjustments in renally impaired patients. The GFR is provided as additional pertinent clinical information. GFR is reported in mL/min/1.73 sq m. Calculation based on the Chronic Kidney Disease Epidemiology Collaboration (CKD- EPI) equation refit without adjustment for race. GFR, EST. >60 >=60 025 1:04 PM [facility] GFR, EST. NONAFRICAN >60 >=60 12/29/2024 1:04 PM [facility] Blood Venipuncture / Unknown 12/29/2024 9:27 AM PRINCIPAL CONSULTANT 12/29/2024 9:27 AM PRINCIPAL CONSULTANT us Dimitrios Stewart MD CHEMISTRY ORDERABLES Alma Delia l Result [facility] [address] [place] [address] * HEMOGLOBIN & HEMATOCRIT (H&H) (11/25/2024 12:00 AM PRINCIPAL CONSULTANT) 11/25/2024 us Provider Scan HEMATOLOGY ORDERABLES Final Resu lt SCAN * BASIC METABOLIC PANEL W/ CALCIUM TOTAL (11/25/2024 12:00 AM PRINCIPAL CONSULTANT) 11/25/2024 us Provider Scan CHEMISTRY ORDERABLES Final Resul t Performing Organization Address City/[facility] Co de Phone Number SCAN * UROLOGY PROCEDURE (11/24/2024 12:00 AM PRINCIPAL CONSULTANT) 11/24/2024 us Provider Scan GEN ORDERS Final Result Performing Organization Address City/[facility] Co de Phone Number SCAN * PATHOLOGY SURGICAL (11/24/2024 12:00 AM PRINCIPAL CONSULTANT) 11/24/2024 us Provider Scan PATHOLOGY/CYTOLOGY ORDERABLES Fi nal Result Performing Organization Address [facility] Co de Phone Number SCAN * HEPATITIS C ANTIBODY (12/29/2023 8:16 AM PRINCIPAL CONSULTANT) hepatitis C antibody 0.22 <1 S/CO [facility] ARCH [id number] B 12/31/2023 4:06 AM PRINCIPAL CONSULTANT [facility] Comment: Signal/Cutoff ratio < 0.79 is Nondetected Signal/Cutoff ratio 0.80-0.99 is Grayzone Signal/Cutoff ratio > 0.99 is Detected Supplemental assays are recommended if signal/cutoff ratio is >/=1.00. Signal/cutoff ratio result >/= 5.00 is 97% predictive of positivity for recombinant immunoblot assay (RIBA) and will be reported to the [place] Department of [facility] as required. Blood Venipuncture / Unknown 12/29/2023 8:16 AM PRINCIPAL CONSULTANT 12/29/2023 8:16 AM PRINCIPAL CONSULTANT us Dimitrios Stewart MD CHEMISTRY ORDERABLES Alma Delia l Result Performing Organization Address City/[facility]/ZIP Co de Phone Number [facility] [address] [place] [address], [place] * COLONOSCOPY (08/01/2014) Gibson Sherman Jr., MD PROCEDURE/MINOR [place]AW[place] GICAL ORDERABLES Final Result from Last 3 Months or Most Recently Relevant to Health Maintenance Insurance MEDICARE C [employer] Care Teams [employer] Senior [employer] Relationship Specialty Start Date End Date Dimitrios Stewart MD [address] [place] [address] PCP - General Internal Medicine 10/21/16 Mandeep Jacob MD [address] [place] [address] Consulting Physician Urology 12/29/24
--- OUTSIDE RECORDS SUMMARY | 2025-02-13 15:45 | XMS_ITS | Encounter Summary ---
Author Organization [facility] Address [address] [place] [address] Phone Care Team Providers Care Lead Setter Name Role Phone Dimitrios Stewart MD Primary Care Provider [phone] Kailash Payan MD Unavailable Mandeep Jacob MD Unavailable [phone] Reason for Visit * Reason Onset Date Comments Results 06/12/2022 Encounter Details Date Type Department Care Team (Late st Contact Info) Description 06/12/2022 Telephone [facility] [address] [place] [address] Kailash Payan MD [address] [address] Results Social History Tobacco Use [...] st Contact Info) Description 01/02/2026 8:00 AM HOT CAR OPERATOR Office Visit [facility] - Primary Care - [place] [address] [place] [address] Dimitrios Stewart MD [address] [place] [address] documented as of this encounter Visit Diagnoses Not on filedocumented in this encounter Additional Health Concerns Infection Onset Date Last Indicated Resolved Time COVID - 19 05/23/2024 05/23/2024 05/23/2024 4:10 PM CDT Assessment Noted Time PHQ-9 Depression Total Score: 0 12/17/19 8:00 AM HOT CAR OPERATOR documented as of this encounter Care Teams Lead Setter Relationship Specialty Start Date End Date Dimitrios Stewart MD [address] [place] [address] PCP - General Internal Medicine 10/21/16 Kailash Payan MD [address] [address] Consulting Physician Urological Surgery 12/19/22 Mandeep Jacob MD [address] [place] [address] Consulting Physician Urology 12/29/24 documented as of this encounter
--- OUTSIDE RECORDS SUMMARY | 2025-02-13 15:45 | XMS_ITS | Encounter Summary ---
Author Organization [facility] Address [address] [place] [address] Phone Care Team Providers Care Paster Supervisor Name Role Phone Dimitrios Stewart MD Primary Care Provider [phone] Kailash Payan MD Unavailable Mandeep Jacob MD Unavailable Reason for Visit * Reason Comments Medication Refill Encounter Details Date Type Department Care Team (Late st Contact Info) Description 04/05/2024 Refill [facility] - Primary Care - [place] [address] [place] [address] Dimitrios Stewart MD [address] [place] [address] Medication Refill Social History Tobacco Use Types Packs/Day Years Used Date Smoking Tobacco: Former Cigarettes 0.3 5 Smokeless Tobacco: Never Comments:Quit 60 yrs ago Alcohol Use Standard Drinks/Week Comments Yes 2 (1 standard drink = 0.6 oz pur e alcohol) [facility] Utilities Answer Date Recorded In the past 12 months has [employer], gas, oil, or water company threatened to [...] often do you attend chur ch or episcopalian services? Never 12/28/2023 Do you belong to any clubs o r organizations such as restorationism groups, unions, fraternal or athletic groups, or [...] Total Score - Questions 1-9 0 12/11 [facility] - Occupational Stress Questionnaire Answer Date [...] No 12/28/2023 Housing Stability Vital Sign Answer Jonathna e Recorded In the last 12 months, [...] in a assisted (including now)? No 12/28/2023 Education Answer Date [...] st Contact Info) Description 01/02/2026 8:00 AM MANAGER GREEN Office Visit [facility] - Primary Care - [place] [address] [place] [phone] Dimitrios Stewart MD [address] [place] [address] documented as of this encounter Visit Diagnoses Not on filedocumented in this encounter Additional Health Concerns Infection Onset Date Last Indicated Resolved Time COVID - 19 05/23/2024 05/23/2024 05/23/2024 4:10 PM CDT Assessment Noted Time PHQ-9 Depression Total Score: 0 12/29/19 7:58 AM MANAGER GREEN documented as of this encounter Care Teams Paster Supervisor Relationship Specialty Start Date End Date Dimitrios Stewart MD [address] [place] [address] PCP - General Internal Medicine 10/21/16 Kailash Payan MD [address] [address] Consulting Physician Urological Surgery 12/19/22 Mandeep Jacob MD [address] [place] [address] Consulting Physician Urology 12/29/24 documented as of this encounter
[2025-02-13 16:16] LABS: Alanine Aminotransferase 54 U/L (6-50); Albumin Level 4.5 g/dL (3.5-5.1); Alkaline Phosphatase 54 U/L (38-126); Anion Gap 12 mmol/L (4-12); Aspartate Amino Transferase 42 U/L (17-59); Bilirubin,Total 0.9 mg/dL (0.2-1.3); Blood Urea Nitrogen 23 mg/dL (9-20); Calcium 8.6 mg/dL (8.4-10.2); Carbon Dioxide 23 mmol/L (22-30); Chloride 103 mmol/L (98-107); Estimated CRCL calculation 67 ml/min; Estimated Glomerular Filt Rate > 60; Glucose 112 mg/dL (65-110); Lipase 93 U/L (23-300); Potassium 4.4 mmol/L (3.4-5.0); Sodium 138 mmol/L (137-145)
[2025-02-13 17:58] VITALS: BP 130/95; PULSE 71; RESP 18; O2SAT 95
--- OUTSIDE RECORDS SUMMARY | 2025-02-13 18:06 | XMS_ITS | Encounter Summary ---
Author Organization [facility] Address [address] [place] [address] Phone Care Team Providers Care Health Information Clerk Name Role Phone Dimitrios Stewart MD Primary Care Provider [phone] Kailash Payan MD Unavailable Mandeep Jacob MD Unavailable [phone] Reason for Visit * Reason Onset Date Comments Results 06/12/2022 Encounter Details Date Type Department Care Team (Late st Contact Info) Description 06/12/2022 Telephone [facility] [address] [place] [address] Kailash Payan MD [address] [address] Results Social History Tobacco Use [...] st Contact Info) Description 01/02/2026 8:00 AM RENEWALS SPECIALIST Office Visit [facility] - Primary Care - [place] [address] [place] [address] Dimitrios Stewart MD [address] [place] [address] documented as of this encounter Visit Diagnoses Not on filedocumented in this encounter Additional Health Concerns Infection Onset Date Last Indicated Resolved Time COVID - 19 05/23/2024 05/23/2024 05/23/2024 4:10 PM CDT Assessment Noted Time PHQ-9 Depression Total Score: 0 12/17/19 8:00 AM RENEWALS SPECIALIST documented as of this encounter Care Teams Health Information Clerk Relationship Specialty Start Date End Date Dimitrios Stewart MD [address] [place] [address] PCP - General Internal Medicine 10/21/16 Kailash Payan MD [address] [address] Consulting Physician Urological Surgery 12/19/22 Mandeep Jacob MD [address] [place] [address] Consulting Physician Urology 12/29/24 documented as of this encounter
--- OUTSIDE RECORDS SUMMARY | 2025-02-13 18:06 | XMS_ITS | Clinical Summary ---
Author Organization [facility] Address [address] [place] [address] Phone Care Team Providers Care Check Airman Name Role Phone Dimitrios Stewart MD Primary Care Provider [phone] Mandeep Jacob MD Unavailable [phone] Allergies Active Allergy Reactions Criticality Noted Date Comments Sulfa Antibiotics Unknown 10/19/2015 Patient states he has never had this medication, was told by mother he was probably allergic since she had a reaction when she was with him Medications glucosamine-ch ondroitin 500-400 MG Capsule Take 1 Capsule by mouth 3 times daily. Active Multiple Vitamins-[place] als (MULTIVITAMIN MEN 50+) Tablet Take 1 [...] Type Department Care Team Description 01/19/2025 Refill [facility] - [address] [place] [address] Dimitrios Stewart MD Medication Refill 12/29/2024 11:00 AM [employer] SUPERINTENDENT Lab [facility] [place] [address] [facility] Arthritis; Benign prostatic hyperplasia with nocturia Discharge Disposition: Discharged to home or Selfcare 12/29/2024 9:00 AM [employer] SUPERINTENDENT Office Visit [facility] [place] [address] Dimitrios Stewart MD Arthritis (Primary Dx); Benign prostatic hyperplasia with nocturia; Irritable bowel syndrome with both constipation and diarrhea; Gastroesophageal reflux disease without esophagitis; Seborrheic keratoses Discharge Disposition: Discharged to home or Selfcare 12/29/2024 Results Follow-Up [facility] [address] [place] [address] Dimitrios Stewart MD 12/27/2024 Travel from Last 3 Months Immunizations Immunization Administration Dates Next Due Covid-19 Vaccine, Vector-nr, [id number], Pf, 0.5 Ml ([employer]) 04/17/2021 PNEUMONIA ADULT IM [id number] 10/21/2016 Pneumococcal [...] = 0.6 oz pur e alcohol) Occasionally [employer] Utilities Answer Date Recorded In the past [...] often do you attend chur ch or church services? Never 12/27/2024 Do you belong to any clubs o r organizations such as catholic groups, unions, fraternal or athletic groups, or [...] Total Score - Questions 1-9 0 12/11 [facility] - [facility]ational Stress Questionnaire Answer [...] place to sleep or slept in a mcc (including now)? No 12/28/2023 Housing Stability Vital Sign Answer Jonathan e Recorded In the last 12 months, was t here a time when you were not able to pay the mortgage or rent on time? No 12/27/2024 In the past 12 months, how m any times have you moved where you were living? 0 12/27/2024 At any time in the past 12 m [place], were you homeless or living in a mcc (including now)? No 12/27/2024 Education Answer Date [...] Comments Blood Pressure 108/80 12/29/2024 9:02 AM [employer] SUPERINTENDENT Pulse 81 12/29/2024 9:02 AM [employer] SUPERINTENDENT Temperature 36.5 C (97.7 F) 12/29/2024 9:02 AM [employer] SUPERINTENDENT Respiratory Rate 20 12/29/2024 9:02 AM [employer] SUPERINTENDENT Oxygen Saturation 97% 12/29/2024 9:02 AM [employer] SUPERINTENDENT Inhaled Oxygen Concentration - - Weight 103.9 kg (229 lb) 12/29/2024 9:02 AM [employer] SUPERINTENDENT Height 180.3 cm (5' 11 ) 12/29/2024 9:02 AM [employer] SUPERINTENDENT Body Mass Index 31.94 12/29/2024 9:02 AM [employer] SUPERINTENDENT Plan of Treatment Upcoming Encounters Date Type Department Care Team (Late st Contact Info) Description 01/02/2026 8:00 AM [employer] SUPERINTENDENT Office Visit [facility] - Primary Care - [address] [place] [id number] Dimitrios Stewart MD [address] [place], [place] [id number] Health Maintenance Due Date Last Done Comments [...] WITH AUTO DIFFERENTIAL Today 12/29/2024 9:27 AM [employer] SUPERINTENDENT Arthritis Benign prostatic hyperplasia with nocturia PSA DIAGNOSTIC,TOTAL Today 12/29/2024 9:27 AM [employer] SUPERINTENDENT Benign prostatic hyperplasia with nocturia CMP (COMPREHENSIVE METABOLIC PANEL) Today 12/29/2024 9:27 AM [employer] SUPERINTENDENT Arthritis Benign prostatic hyperplasia with nocturia COMPLETE BLOOD COUNT (CBC) WITH DIFF Today 12/29/2024 9:27 AM [employer] SUPERINTENDENT Arthritis Benign prostatic hyperplasia with nocturia HEMOGLOBIN & HEMATOCRIT (H&H) 11/25/2024 12:00 AM [employer] SUPERINTENDENT BASIC METABOLIC PANEL W/ CALCIUM TOTAL 11/25/2024 12:00 AM [employer] SUPERINTENDENT PATHOLOGY SURGICAL 11/24/2024 12 :00 AM [employer] SUPERINTENDENT UROLOGY PROCEDURE 11/24/2024 12: 00 AM [employer] SUPERINTENDENT HEPATITIS C ANTIBODY Routine 12/29/2023 8:16 AM [employer] SUPERINTENDENT Encounter for hepatitis C screening test for low risk patient HM COLONOSCOPY Routine 08/01/2014 from Last 3 Months or Most Recently Relevant to Health Maintenance Results * (ABNORMAL) CBC WITH AUTO DIFFERENTIAL (12/29/2024 9:27 AM [employer] SUPERINTENDENT) WBC 9.04 4.00 - 12.00 10(3)/mcL 12/29/2024 12:19 PM [facility] RBC 5.20 4.40 - 5.80 10(6)/mcL 12/29/2024 12:19 PM [facility] HEMOGLOBIN (HGB) 15.3 13.0 - 16.5 g/dL 12/29/2024 12:19 PM [facility] HEMATOCRIT (HCT) 45.0 38.0 - 50.0 % 12/29/2024 12:19 PM [facility] MCV 86.5 82.0 - 96.0 fL 12/29/2024 12:19 PM [facility] MCH 29.4 26.0 - 32.0 pg 12/29/2024 12:19 PM [facility] MCHC 34.0 31.0 - 36.0 g/dL 12/29/2024 12:19 PM [facility] PLATELET COUNT 264 140 - 440 10(3)/mcL 12/29/2024 12:19 PM [facility] RDW 12.7 11.8 - 15.5 % 12/29/2024 12:19 PM [facility] MPV 8.8 8.0 - 12.6 fL 12/29/2024 12:19 PM [facility] NEUTROPHILS 57.3 40.0 - 68.0 % 12/29/2024 12:19 PM [facility] LYMPHOCYTES 26.0 19.0 - 49.0 % 12/29/2024 12:19 PM [facility] MONOCYTES 10.7 3.0 - 13.0 % 12/29/2024 12:19 PM [facility] EOSINOPHILS 5.0 0.0 - 8.0 % 12/29/2024 12:19 PM [facility] BASOPHILS 1.0 0.0 - 1.0 % 12/29/2024 12:19 PM [facility] ABSOLUTE NEUTROPHILS 5.18 1.40 - 5.30 10(3)/mcL 12/29/2024 12:19 PM [facility] ABSOLUTE LYMPHOCYTES 2.35 0.90 - 3.30 10(3)/mcL 12/29/2024 12:19 PM [employer]ENT [facility] ABSOLUTE MONOCYTES 0.97(H) 0.10 - 0.90 10(3)/mcL 12/29/2024 12:19 PM [employer]PERINT[employer]ENT [facility] ABSOLUTE EOSINOPHIL 0.45 0.00 - 0.50 10(3)/mcL 12/29/2024 12:19 PM [employer]INT[employer]ENT [facility] ABSOLUTE BASOPHILS 0.09 0.00 - 0.10 10(3)/mcL 12/29/2024 12:19 PM [employer] SUPERINTENDENT [facility] NRBC PER 100 WBC 0 12/29/19 12:19 PM [employer]PERINT[employer]ENT [facility] Blood Venipuncture / Unknown 12/29/2024 9:27 AM [employer] SUPERINTENDENT 12/29/2024 9:27 AM [employer] SUPERINTENDENT us Dimitrios Stewart MD HEMATOLOGY ORDERABLES Fin al Result [facility] [address] [place] [address] * PSA DIAGNOSTIC,TOTAL (12/29/2024 9:27 AM [employer] SUPERINTENDENT) PSA, TOTAL (PROSTATIC SPECIFIC ANTIGEN) 1.30 <4.00 ng/mL 12/29/2024 1:23 PM [employer] SUPERINTENDENT [facility] Blood Venipuncture / Unknown 12/29/2024 9:27 AM [employer] SUPERINTENDENT 12/29/2024 9:27 AM [employer] SUPERINTENDENT Narrative [facility] - 12/29/2024 1:23 PM [employer] SUPERINTENDENT PSA NOTE: The PSA value should be used in conjunction with information available from clinical evaluation and other diagnostic procedures. The ALINITY Total PSA assay is a Chemiluminescent Microparticle Immunoassay (CMIA) for the quantitative determination of total PSA (both free PSA and PSA complexed to [id number]) in human serum. Total PSA values obtained with different assay methods, including Orellana PSA assays, cannot be used interchangeably. us Dimitrios Stewart MD CHEMISTRY ORDERABLES Alma Delia douglas Result [facility] [address] [place] [address] * (ABNORMAL) CMP (COMPREHENSIVE METABOLIC PANEL) (12/29/2024 9:27 AM [employer] SUPERINTENDENT) SODIUM 139 136 - 145 mmol/L 12/29/2024 1:04 PM [facility] POTASSIUM 4.3 3.5 - 5.1 mmol/L 12/29/2024 1:04 PM [facility] CHLORIDE 105 98 - 107 mmol/L 12/29/2024 1:04 PM [facility] CO2, VENOUS 25 22 - 30 mmol/L 12/29/2024 1:04 PM [facility] ANION GAP 13.3 <18.0 mmol/L 12/29/2024 1:04 PM [facility] GLUCOSE 106(H) 70 - 99 mg/dL 12/29/2024 1:04 PM [facility] BUN 17 8 - 26 mg/dL 12/29/2024 1:04 PM [facility] CREATININE, BLOOD 0.93 0.70 - 1.30 mg/dL 12/29/2024 1:04 PM [facility] BUN/CREATININE RATIO 18 12 - 20 ratio 12/29/2024 1:04 PM [facility] TOTAL PROTEIN 8.1(H) 6.0 - 8.0 g/dL 12/29/2024 1:04 PM [facility] ALBUMIN 4.5 3.5 - 5.0 g/dL 12/29/2024 1:04 PM [facility] A/G RATIO 1.3 1.0 - 2.2 12/29/2024 1:04 PM [facility] CALCIUM 9.2 8.7 - 10.5 mg/dL 12/29/2024 1:04 PM [facility] T BILI 0.8 0.2 - 1.2 mg/dL 12/29/2024 1:04 PM [facility] SGOT (AST) 40 <43 U/L 12/29/2024 1:04 PM [facility] SGPT (ALT) 42 <56 U/L 12/29/2024 1:04 PM [facility] ALKALINE PHOSPHATASE 62 40 - 150 U/L 12/29/2024 1:04 PM [facility] IS THE PATIENT REQUIRED TO BE FASTING? No 12/29/2024 1:04 PM [facility] GFR, ESTIMATED >60 >=60 12/29/2024 1:04 PM [facility] Comment: Creatinine Clearance is the preferred criteria for selecting drug dose adjustments in renally impaired patients. The GFR is provided as additional pertinent clinical information. GFR is reported in mL/min/1.73 sq m. Calculation based on the Chronic Kidney Disease Epidemiology Collaboration (CKD- EPI) equation refit without adjustment for race. GFR, EST. >60 >=60 025 1:04 PM [facility] GFR, EST. NONAFRICAN >60 >=60 12/29/2024 1:04 PM [facility] Blood Venipuncture / Unknown 12/29/2024 9:27 AM [employer] SUPERINTENDENT 12/29/2024 9:27 AM [employer] SUPERINTENDENT us Dimitrios Stewart MD CHEMISTRY ORDERABLES Alma Delia l Result [facility] [address] [place] [address] * HEMOGLOBIN & HEMATOCRIT (H&H) (11/25/2024 12:00 AM [employer] SUPERINTENDENT) 11/25/2024 us Provider Scan HEMATOLOGY ORDERABLES Final Resu lt SCAN * BASIC METABOLIC PANEL W/ CALCIUM TOTAL (11/25/2024 12:00 AM [employer] SUPERINTENDENT) 11/25/2024 us Provider Scan CHEMISTRY ORDERABLES Final Resul t Performing Organization Address City/[facility] Co de Phone Number SCAN * UROLOGY PROCEDURE (11/24/2024 12:00 AM [employer] SUPERINTENDENT) 11/24/2024 us Provider Scan GEN ORDERS Final Result Performing Organization Address City/[facility] Co de Phone Number SCAN * PATHOLOGY SURGICAL (11/24/2024 12:00 AM [employer] SUPERINTENDENT) 11/24/2024 us Provider Scan PATHOLOGY/CYTOLOGY ORDERABLES Fi nal Result Performing Organization Address [facility] Co de Phone Number SCAN * HEPATITIS C ANTIBODY (12/29/2023 8:16 AM [employer] SUPERINTENDENT) hepatitis C antibody 0.22 <1 S/CO [facility] ARCH [id number] B 12/31/2023 4:06 AM [employer] SUPERINTENDENT [facility] Comment: Signal/Cutoff ratio < 0.79 is Nondetected Signal/Cutoff ratio 0.80-0.99 is Grayzone Signal/Cutoff ratio > 0.99 is Detected Supplemental assays are recommended if signal/cutoff ratio is >/=1.00. Signal/cutoff ratio result >/= 5.00 is 97% predictive of positivity for recombinant immunoblot assay (RIBA) and will be reported to the [place] Department of Public Health as required. Blood Venipuncture / Unknown 12/29/2023 8:16 AM [employer] SUPERINTENDENT 12/29/2023 8:16 AM [employer] SUPERINTENDENT us Dimitrios Stewart MD CHEMISTRY ORDERABLES Alma Delia l Result Performing Organization Address City/[facility]/ZIP Co de Phone Number [facility] [address] [place] [address], [place] * COLONOSCOPY (08/01/2014) Gibson Sherman Jr., MD PROCEDURE/MINOR SHAWNA GICAL ORDERABLES Final Result from Last 3 Months or Most Recently Relevant to Health Maintenance Insurance MEDICARE C [employer] Care Teams Check Airman Relationship Specialty Start Date End Date Dimitrios Stewart MD [address] [place] [address] PCP - General Internal Medicine 10/21/16 Mandeep Jacob MD [address] [place] [address] Consulting Physician Urology 12/29/24
--- OUTSIDE RECORDS SUMMARY | 2025-02-13 18:06 | XMS_ITS | Encounter Summary ---
Author Organization [facility] Address [address] [place] [address] Phone Care Team Providers Care Integration Analyst Name Role Phone Dimitrios Stewart MD Primary Care Provider [phone] Kailash Payan MD Unavailable Mandeep Jacob MD Unavailable [phone] Reason for Visit * Reason Comments Medication Refill Encounter Details Date Type Department Care Team (Late st Contact Info) Description 04/05/2024 Refill [facility] - Primary Care - [place] [address] [place] [address] Dimitrios Stewart MD [address] [place] [address] Medication Refill Social History Tobacco Use Types Packs/Day Years Used Date Smoking Tobacco: Former Cigarettes 0.3 5 Smokeless Tobacco: Never Comments:Quit 60 yrs ago Alcohol Use Standard Drinks/Week Comments Yes 2 (1 standard drink = 0.6 oz pur e alcohol) [facility] Utilities Answer Date Recorded In the past 12 months has [employer], gas, oil, or water company threatened to [...] often do you attend chur ch or yazdanism services? Never 12/28/2023 Do you belong to any clubs o r organizations such as rastafarian groups, unions, fraternal or athletic groups, or [...] Total Score - Questions 1-9 0 12/11 [facility] - Occupational Stress Questionnaire Answer Date [...] place to sleep or slept in a longterm (including now)? No 12/28/2023 Education Answer Date [...] Contact Info) Description 01/02/2026 8:00 AM HOT TAR ROOFER Office Visit [facility] - Primary Care - [place] [address] [place] [phone] Dimitrios Stewart MD [address] [place] [address] documented as of this encounter Visit Diagnoses Not on filedocumented in this encounter Additional Health Concerns Infection Onset Date Last Indicated Resolved Time COVID - 19 05/23/2024 05/23/2024 05/23/2024 4:10 PM CDT Assessment Noted Time PHQ-9 Depression Total Score: 0 12/29/19 7:58 AM HOT TAR ROOFER documented as of this encounter Care Teams Integration Analyst Relationship Specialty Start Date End Date Dimitrios Stewart MD [address] [place] [address] PCP - General Internal Medicine 10/21/16 Kailash Payan MD [address] [address] Consulting Physician Urological Surgery 12/19/22 Mandeep Jacob MD [address] [place] [address] Consulting Physician Urology 12/29/24 documented as of this encounter
== END 2025-02-13 18:03 | disposition home or self-care (01) ==
PROVIDERS: Physician Assistant; Emergency Provider Family Medicine; PCP Internal Medicine
DX: N30.21 Other chronic cystitis with hematuria (principal); N40.1 Benign prostatic hyperplasia with lower urinary tract symptoms; N13.8 Other obstructive and reflux uropathy
CPT/HCPCS: 36415; 74176; 80053; 81001; 83690; 85025; 99284

== ENCOUNTER 2025-08-01 09:43 | Outpatient (CLI) | payer MEDICARE, SELFPAY ==
--- NOTE | ~2025-08-01 | CT_ITS ---
EXAMINATION: CT abdomen pelvis wo con, 08/01/2025 9:45 CDT HISTORY: Elevated PSA COMPARISON: 02/13/2025 TECHNIQUE: CT scan of the abdomen and pelvis was performed without IV contrast. One or more of the following dose reduction techniques were used: automated exposure control, adjustment of the mA and/or kV according to patient size, use of iterative reconstruction technique. Unless otherwise stated, incidental findings do not require dedicated follow up imaging FINDINGS: CT abdomen: LUNG BASES: The lung bases are clear. The visualized portions of the heart and pericardium are unremarkable. LIVER: Mild hepatic steatosis. SPLEEN: Unremarkable, no splenomegaly. KIDNEYS: Right Kidney: Unremarkable. No calculi. No hydronephrosis. Left Kidney: Unremarkable. No calculi. No hydronephrosis ADRENAL GLANDS: Unremarkable. PANCREAS: Mild pancreatic atrophy. GALLBLADDER/BILIARY: Post cholecystectomy. STOMACH AND ESOPHAGUS: Small hiatal hernia. Minimal thickening of the esophagus probable mild esophagitis. BOWEL/MESENTERY: Moderate fecal content. Appendix normal. Mesentery normal. No dilated small bowel loops. ADENOPATHY/RETROPERITONEUM: No lymphadenopathy. AORTA/VASCULATURE: Normal caliber aorta. FREE FLUID OR FREE AIR: No free fluid.. CT pelvis: SOLID ORGANS/REPRODUCTIVE: Prostate is enlarged correlate with PSA and prostate ultrasound. BLADDER: There is circumferential thickening of the bladder wall which is decompressed. OSSEOUS STRUCTURES: Scattered punctate probable sclerotic bone islands but too small to characterize. No lytic lesions identified. OVERLYING SOFT TISSUES: Small fat-containing umbilical hernia. Small fat- containing left inguinal hernia. IMPRESSION: 1. Scattered punctate bone lesions detailed above which are probable bone islands however distinction from the right metastasis is limited. Consider bone scan to further assess for follow-up to assess stability. These appear relatively unchanged compared to the previous exam Reviewed, dictated and finalized at location A. IMPRESSION: 1. Scattered punctate bone lesions detailed above which are probable bone islan ds however distinction from the right metastasis is limited. Consider bone scan to further assess for follow-up to assess stability. These appear relatively u nchanged compared to the previous exam
== END 2025-08-01 09:44 | disposition home or self-care (01) ==
LOC: MICIMG 09:44
PROVIDERS: PCP Internal Medicine; Visit Provider Urology
DX: R97.20 Elevated prostate specific antigen [PSA] (principal)
CPT/HCPCS: 74176